=== PATIENT | male | born 1970 | race Caucasian/White ===

== ENCOUNTER 2020-09-09 08:46 | Emergency (ER) | payer MEDICAID, SELFPAY ==
[2020-09-09 08:48] VITALS: BP 159/67; PULSE 80; RESP 18; TEMP 36.3; O2SAT 96; BMI 28.1
--- NOTE | 2020-09-09 09:05 | ED_ITS ---
HPI - Abdominal Pain General: Chief Complaint: Abdominal Pain Stated Complaint: left abdomen pain, nausea Time Seen by Provider: 09/09/20 09:04 History of Present Illness: HPI narrative: Patient is a 49-year-old male who presents to the ED with left flank pain, nausea and vomiting. Patient has past medical history of CVA and is currently taking Eliquis. Patient says he woke up early this morning with intense pain on left flank. He currently rates the pain an 8 out of 10. He is had nausea and emesis along with the pain. He says that pain is moving down around his left flank and into his left lower pelvis. He states his urine is dark and very concentrated. Denies history of kidney stones. Denies fever, chest pain, shortness of breath, constipation, dysuria. Patient endorses diarrhea but he says that is a chronic issue. Associated Symptoms: Reports nausea and vomiting; Denies chills, constipation, diarrhea, dysuria, fever(s), hematochezia and hematuria Review of Systems Const: Denies: fever(s), chills or fatigue Eyes: Denies: change in vision or eye discomfort ENMT: Denies: throat pain, odynophagia, nasal discharge or nasal congestion Card: Denies: chest pain, palpitations, edema, swelling of feet/ankles, dyspnea on exertion or orthopnea Resp: Denies: dyspnea, productive cough or non-productive cough GI: Reports: abdominal pain (left lower pelvic pain), nausea and vomiting; Denies: diarrhea, constipation or hematochezia : Reports: flank pain; Denies: difficulty urinating, dysuria or hematuria Musc: Denies: neck pain, back pain or extremity swelling Skin/Breast: Denies: rash or new lesions Neuro: Denies: headache(s), numbness in extremities or weakness in extremities Physical Exam Const: COMMON NORMALS: patient oriented x3, healthy appearing and alert GENERAL APPEARANCE: cooperative; not comfortable (Patient appears uncomfortable and in pain and is constantly moving.) HENMT: COMMON NORMALS: normocephalic HEAD & SCALP: normocephalic MOUTH: Normal oral and palatal mucosa present THROAT: posterior oropharynx normal and uvula midline Neck/C-Spine: COMMON NORMALS: supple GENERAL: Yes normal visual inspection Resp: COMMON NORMALS: normal respiratory effort, No retractions, No use of accessory muscles and clear to auscultation bilaterally AUSCULTATION: clear to auscultation bilaterally Cardio: COMMON NORMALS: regular rate, regular rhythm, S1 normal heart sound pr esent, S2 normal heart sound present, No gallops present (Cardio), No clicks present (Cardio), No murmurs present (Cardio) and Peripheral pulses 2+ throughout RATE: regular rate RHYTHM: regular rhythm HEART SOUNDS: S1 normal heart sound present and S2 normal heart sound present PERIPHERAL PULSES: Peripheral pulses 2+ throughout GI: COMMON NORMALS: Normal to inspection, nondistended, normoactive bowel sounds present, Soft to palpation, non-tender and no masses PALPATION: Yes Soft to palpation : BLADDER/KIDNEY EXAM: Yes CVA tenderness on the left Back/Pelvis: GENERAL BACK: Yes CVA tenderness Extremity: COMMON NORMALS: normal to inspection and no pedal edema Neuro: COMMON NORMALS: patient oriented x3 SENSORIUM/ORIENTATION: Yes alert GAIT: Yes Normal gait present Skin: GENERAL SKIN EXAM: dry skin Course Vital Signs: Vital signs: Vital Signs Temperature 97.3 F L 09/09/20 08:48 Pulse Rate 80 09/09/20 08:48 Respiratory Rate 18 09/09/20 10:46 Blood Pressure 159/67 09/09/20 08:48 Pulse Oximetry 93 09/09/20 10:46 MDM - Abdominal Pain MDM Narrative: Medical decision making narrative: Patient is a 49-year-old male that comes to the ED with left flank pain. Patient has CVA tenderness on the left side. White blood cell count 12.6 and rest of CBC and CMP were unremarkable. Urine showed blood and a lot of RBCs. CT of the abdomen showed 3 mm obstructive stone at the left UVJ. Patient was given IV fluids, Zofran and and morphine while here in the ED and his symptoms greatly improved. Patient was discharged with a prescription for hydrocodone, Zofran and tamsulosin. He was told to strain his urine and catch stone. I placed an order with case management for patient to have referral to urologist Dr. Piedra. Patient informed that he will receive a call from case management next couple days to set up appointment with urologist. Return to ED precautions given. Patient understood and agreed with plan. Lab Data: Attestation: I reviewed the patient's lab results. Labs: Lab Results 1109/09/20 09/09/20 Range/Units 09:30 09:32 09:32 WBC 12.6 H (4.0-10.0) 10^3/ uL RBC 5.11 (4.1-5.3) 10^6/u L Hgb 16.8 H (11.7-16.6) g/dL Hct 49.1 (42.0-52.0) % MCV 96.1 H (80-94) fL MCH 32.9 (28.0-34.0) pg MCHC 34.2 (30.0-36.0) g/dL RDW 11.9 L (12.1-15.1) % Plt Count 313 (130-400) 10^3/c mm MPV 8.6 (7.4-10.4) fL Neut % (Auto) 68.7 % Lymph % (Auto) 22.5 % Bullock % (Auto) 7.3 % Eos % (Auto) 0.8 % Baso % (Auto) 0.3 % Neut # (Auto) 8.68 H (1.8-7.7) 10^3/u L Lymph # (Auto) 2.8 (0.8-4.8) 10^3/u L Bullock # (Auto) 0.9 (0.2-0.9) 10^3/u L Eos # (Auto) 0.1 (0.0-0.8) 10^3/u L Baso # (Auto) 0.0 (0.0-0.1) 10^3/u L Nucleated RBC % (a uto) 0 % Nucleated RBCs # 0.0 /100WBC Sodium 138 (136-145) mmol/L Potassium 4.1 (3.5-5.1) mmol/L Chloride 109 H (98-107) mmol/L Carbon Dioxide 20 L (22-29) mmol/L Anion Gap 13.1 (5-19) BUN 19 (6-20) mg/dL Creatinine 0.9 (0.7-1.2) mg/dL GFR Calculation 89.7 L (90-130) mL/min Glucose 122 H (65-115) mg/dL Calculated Osmolal ity 290 (285-295) mOsm/k g Calcium 9.1 (8.5-10.5) mg/dL Total Bilirubin 0.4 (0.15-1.2) mg/dL AST 34 (0-40) U/L ALT 61 H (0-41) U/L Alkaline Phosphata se 95 (40-130) IU/L Total Protein 7.6 (6.6-8.7) g/dL Albumin 4.5 (3.5-5.2) g/dL Globulin 3.1 (1.3-4.6) g/dL Lipase 30 (13-60) U/L Urine Color Yellow (Yellow) Urine Appearance Sl hazy (CLEAR) Urine pH 6.0 (5-7) Ur Specific Gravit y 1.020 (1.005-1.030) Urine Protein Neg (Negative) Urine Glucose (UA) Norm (Normal) Urine Ketones Negative (Negative) Urine Blood 3+ H (Negative) Urine Nitrate Negative (Negative) Urine Bilirubin Neg (Negative) Urine Urobilinogen 1 H (Negative) mg/dL Ur Leukocyte Kiya ase Negative (Negative) Urine RBC 40-50 H (0-2) /hpf Urine WBC None (0-5) /hpf Ur Squamous Epith Cells 0-4 H (0-5) /hpf Amorphous Sediment Not Reportable Urine Bacteria 1+ H (NONE) /hpf Urine Mucus Trace /hpf Imaging Data ^: CT Abd/Pel: Attestation: I personally reviewed and interpreted this imaging study as follows: Radiologist's impression: [place] [address] CT Scan Report Signed Patient: Marti Wolfe Unit #: [id number] : 1970 Age/Sex: 49 / M ADM Date: 09/09/20 Loc: ER Room/Bed: Attending Dr: Ordering Provider/Ordering MD: Simón Harris Date of Service: 09/09/20 Procedure(s): CT kidney stone 24274 Accession Number(s): [id number] Report Number: [id number] WS: [id number] CT ABDOMEN PELVIS TECHNIQUE: Noncontrast CT of the abdomen and pelvis with coronal and sagittal reformatted images. CLINICAL INFORMATION: left flank pain, cva tenderness COMPARISON: 016 DLP: 1276.[address] scans at [facility] use at least one of these dose optimization techniques: automated exposure control; mA and/or kV adjustment per patient size (includes targeted exams where dose is matched to clinical indication); or iterative reconstruction. FINDINGS: Distal obstructing left UVJ calculus measuring 3 mm. Mild left pelvocaliectasis and ureterectasis. Inflammatory stranding about the left ureter and left kidney. No hydronephrosis in right kidney. Right ureter is decompressed. Tiny left calyceal tip calculi. Noncontrast liver is normal. Normal noncontrast gallbladder. Normal GE junction. Noncontrast spleen is normal. Mild pancreatic atrophy. Bibasilar atelectasis. Adrenal glands are normal. Normal caliber abdominal aorta. Normal appendix. Mild disc bulging L4-L5 and L5-S1. CT/CT kidney stone [id number] IMPRESSION: 1. 3 mm obstructing left UVJ calculus with mild left ureterectasis and pelvocaliectasis. Inflammatory stranding about the left kidney and proximal ureter. 2. No hydronephrosis in right kidney. 3. No free fluid in the abdomen or pelvis. 4. No other significant changes from previous Notified JANICE El at 09/09/2020 10:23 AM. Dictated By: Ronan Lyn MD Signed By: Ronan Lyn MD Signed Date/Time: 09/09/20 1024 DD/ 1007 Discharge Plan Discharge Patient Disposition: Home Clinical Impression: Kidney stone on left side Condition: Stable Prescriptions: New tamsulosin 0.4 mg capsule 0.4 mg PO DAILY Qty: 20 RF: 0 Zofran 4 mg tablet 4 mg PO Q8H Qty: 15 RF: 0 Discharge Orders: Discharge Order (Routine); Ordered 09/09/20 Ordered By: Simón Harris Referrals: Junie Muller DO [Primary Care Provider] - Discharge Diet: Advance as tolerated Discharge Activity: Resume usual activity Patient Instructions: Kidney Stones (ED), How to Strain Your Urine (ED) Activity Restrictions/Additional Instructions: Follow-up with medical provider as directed. Case management should be contacting you in the next several days to set up an appointment with Dr. Piedra the urologist. Strain urine to catch stone and drink lots of fluid to stay hydrated and help pass stone. Take medications as prescribed. You can take ibuprofen or Aleve for any pain or fevers. Return to the ER or your medical provider if condition worsens. Please read and understand discharge instructions. If any questions, please ask. Stand Alone Forms: Work/School Release Discharge Date/Time: 09/09/20 11:08 Coding Level of Care Code ED Sign Writer Hand for Angela Fwd Exam Comprehensive
--- NOTE | 2020-09-09 09:18 | CT_ITS ---
WS: [id number] CT ABDOMEN PELVIS TECHNIQUE: Noncontrast CT of the abdomen and pelvis with coronal and sagittal reformatted images. CLINICAL INFORMATION: left flank pain, cva tenderness COMPARISON: 6 ,016 DLP: 1276.[address] scans at [facility] use at least one of these dose optimization techniques: automat ed exposure control; mA and/or kV adjustment per patient size (includes targeted exams where dose is matched to clinical indication); or iterative reconstruction. FINDINGS: Distal obstructing left UVJ calculus measuring 3 mm. Mild left pelvocaliectasis and ureterectasis. In flammatory stranding about the left ureter and left kidney. No hydronephrosis in right kidney. Right ureter is decompressed. Tiny left calyceal tip calculi. Noncontrast liver is normal. Normal noncontrast gallbladder. Normal GE junction. Noncontrast spleen i s normal. Mild pancreatic atrophy. Bibasilar atelectasis. Adrenal glands are normal. Normal caliber abdominal aorta. Normal appendix. Mild disc bulging L4-L5 a nd L5-S1. CT/CT kidney stone [id number] IMPRESSION: 1. 3 mm obstructing left UVJ calculus with mild left ureterectasis and pelvoca liectasis. Inflammatory stranding about the left kidney and proximal ureter. 2. No hydronephrosis in right kidney. 3. No free fluid in the abdomen or pelvis. 4. No other significant changes from previous Notified JANICE El at 09/09/2020 10:23 AM.
[2020-09-09] MEDS: ondansetron 2 mg/ML SDV 2 mL 4 MG IVP (09:22)
[2020-09-09] MEDS: sodium chloride 0.9% 1,000 ML 999 ML IV (09:22)
[2020-09-09 09:28] VITALS: RESP 18
[2020-09-09] MEDS: morphine 4 mg/mL SDV 1 mL IVP ×2 (09:28→10:46)
[2020-09-09 09:44] LABS: Basophils % 0.3 %; Eosinophils # 0.1 10^3/uL (0.0-0.8); Eosinophils % 0.8 %; Hematocrit 49.1 % (42.0-52.0); Hemoglobin 16.8 g/dL (11.7-16.6); Lymphocytes # 2.8 10^3/uL (0.8-4.8); Lymphocytes % 22.5 %; Mean Corpuscular HGB Conc 34.2 g/dL (30.0-36.0); Mean Corpuscular Hemoglobin 32.9 pg (28.0-34.0); Mean Corpuscular Volume 96.1 fL (80-94); Mean Platelet Volume 8.6 fL (7.4-10.4); Monocytes # 0.9 10^3/uL (0.2-0.9); Monocytes % 7.3 %; Neutrophils # 8.68 10^3/uL (1.8-7.7); Neutrophils % 68.7 %; Nucleated Red Blood Cells % 0 %; Platelet Count 313 10^3/cmm (130-400); Red Blood Count 5.11 10^6/uL (4.1-5.3); Red Cell Distribution Width 11.9 % (12.1-15.1); White Blood Count 12.6 10^3/uL (4.0-10.0)
[2020-09-09 09:52] LABS: Bilirubin Urine Neg (Negative); Blood Urine 3+ (Negative); Glucose Urine UA Norm (Normal); Ketones Urine Negative (Negative); Leukocyte Esterase Urine Negative (Negative); Nitrate Urine Negative (Negative); Protein Urine Neg (Negative); Urine Appearance SL Hazy (CLEAR); Urine Color Yellow (Yellow); Urobilinogen Urine 1 mg/dL (Negative)
[2020-09-09 09:59] LABS: Alanine Aminotransferase 61 U/L (0-41); Albumin Level 4.5 g/dL (3.5-5.2); Alkaline Phosphatase 95 IU/L (40-130); Anion Gap 13.1 (5-19); Aspartate Amino Transferase 34 U/L (0-40); Blood Urea Nitrogen 19 mg/dL (6-20); Calcium 9.1 mg/dL (8.5-10.5); Carbon Dioxide 20 mmol/L (22-29); Chloride 109 mmol/L (98-107); Globulin 3.1 g/dL (1.3-4.6); Glomerular Filtration Rate 89.7 mL/min (90-130); Glucose 122 mg/dL (65-115); Lipase 30 U/L (13-60); Osmolality Calculated 290 mOsm/kg (285-295); Potassium 4.1 mmol/L (3.5-5.1); Sodium 138 mmol/L (136-145); Total Bilirubin 0.4 mg/dL (0.15-1.2); Total Protein 7.6 g/dL (6.6-8.7)
[2020-09-09 10:16] LABS: Add Urine Culture? Yes; Bacteria Urine 1+ /hpf; Mucus Urine TRACE /hpf; RBC Urine 40-50 /hpf (0-2); Squamous Epithelial Cell Urine 0-4 /hpf (0-5)
[2020-09-09 10:46] VITALS: RESP 18; O2SAT 93
[2020-09-09] MEDS: tamsulosin 0.4 mg Capsule PO (10:48)
[2020-09-09 11:09] VITALS: PULSE 72; RESP 20; O2SAT 93
--- NOTE | 2020-09-09 11:23 | DCPLANNER ---
employment specialist/program manager was asked to schedule a follow up appointment for patient with Dr. Piedra. employment specialist/program manager called the office of Dr. Piedra, spoke with Nirali, gave clinic patients information. employment specialist/program manager was told that patients information would be printed and reviewed. Clinic will call patient with appointment information.
--- NOTE | 2020-09-10 10:21 | DCPLANNER ---
Patient has a follow up appointment scheduled for Monday, September 11, 2020 at 11:[address] Piedra. Clinic will call patient with appointment information.
--- NOTE | 2020-10-07 13:00 | DCPLANNER ---
Patient had a follow up appointment scheduled for 09.11.[address] Piedra - patient did attend appointment.
== END 2020-09-09 11:08 | disposition home or self-care (01) ==
PROVIDERS: Emergency Provider Physician Assistant; PCP Internal Medicine
DX: N20.0 Calculus of kidney (principal)
CPT/HCPCS: 12345; 74176; 80053; 81001; 83690; 85025; 87040; 87086; 96361; 96374; 96375; 96376; 99283; J2270; J2405; J7030

== ENCOUNTER 2020-09-11 09:59 | Outpatient (CLI) | payer MEDICAID, SELFPAY ==
--- NOTE | 2020-09-11 09:45 | XR_ITS ---
WS: [id number] KUB, 09/11/2020 Clinical Data: KIDNEY STONE Comparison: CT abdomen and pelvis, 09/09/2020. Findings: No abnormal intraabdominal masses or calcifications are seen. There is no dilatated small bowel or ev idence of obstruction. The left UVJ calculus is obscured by fecal material. XR/XR KUB 24919 Impression: Negative KUB.
== END 2020-09-11 10:00 | disposition home or self-care (01) ==
LOC: RAD 10:02
PROVIDERS: PCP Internal Medicine; Visit Provider Nurse Practitioner Family
DX: N20.0 Calculus of kidney (principal)
CPT/HCPCS: 74018

== ENCOUNTER 2020-09-16 12:06 | Outpatient (CLI) | payer MEDICAID, SELFPAY ==
--- NOTE | 2020-09-16 12:30 | XR_ITS ---
WS: [id number] KUB, 09/16/2020 Clinical Data: LEFT URETERAL STONE Comparison: KUB, 09/11/2020., CT abdomen and pelvis, 09/09/2020. Findings: No abnormal intraabdominal masses or calcifications are seen. There is no dilatated small bowel or ev idence of obstruction. The left ureterovesical junction stone seen on a CT scan of 09/09/2020 is not visualized on the curre nt exam.. XR/XR KUB 49278 Impression: Negative KUB.
== END 2020-09-16 12:07 | disposition home or self-care (01) ==
LOC: RAD 12:12
PROVIDERS: PCP Internal Medicine; Visit Provider Urology
DX: N20.1 Calculus of ureter (principal)
CPT/HCPCS: 74018; 81003

== ENCOUNTER 2020-09-30 09:49 | Outpatient (CLI) | payer MEDICAID, SELFPAY ==
--- NOTE | 2020-09-30 10:15 | XR_ITS ---
WS: [id number] XR KUB 11045 REASON FOR EXAM: URETERAL STONE FINDINGS: No urinary tract calculi are identified. The left ureteral vesicle junction calculus seen on CT scan of 09/09/2020 was not visualized on the previous abdomen film nor on the current study. No other significant abnormality is identified. XR/XR KUB 51811 IMPRESSION: Unable to identify left UVJ calculus seen on previous CT scan.
== END 2020-09-30 09:50 | disposition home or self-care (01) ==
LOC: RAD 09:51
PROVIDERS: PCP Internal Medicine; Visit Provider Urology
DX: N20.1 Calculus of ureter (principal)
CPT/HCPCS: 74018

== ENCOUNTER → 2020-10-17 11:54 | Outpatient (BNVA) | payer MEDICAID, SELFPAY | PROVIDERS: PCP Internal Medicine; Visit Provider Surgery | DX: Z20.828 Contact with and (suspected) exposure to other viral communicable diseases (principal); Z01.812 Encounter for preprocedural laboratory examination | CPT/HCPCS: 87635 ==

== ENCOUNTER 2020-10-19 18:56 | Emergency (ER) | payer MEDICAID, SELFPAY ==
[2020-10-19 18:58] VITALS: BP 112/79; PULSE 81; RESP 18; TEMP 37; O2SAT 96; BMI 27.5
--- NOTE | 2020-10-19 19:20 | W.ED.GIBLEED ---
Documented by User: Lui Vitale DO 10/20/20 08:06 HPI - GI Bleed General: Chief complaint: GI Bleed Stated complaint: bloody stool Time Seen by Provider: 10/19/20 19:06 History of Present Illness: HPI Narrative: 50-year-old male presents emergency room complaining of melenic stools. He is scheduled for colonoscopy and EGD he had canceled because his Covid screening was not completed in a timely fashion. He had started taking his prep however and got some black tarry stools he denies any recent use of Pepto-Bismol. He has not had any bright red blood per rectum no nausea or vomiting no hematemesis. He was previously on Eliquis but stopped that because of concern for GI bleed. MD complaint: melena Onset (ago): hour(s) Severity: moderate Relieving factors: none Exacerbating factors: none Context: history of GI bleed Associated symptoms: Denies abdominal pain, chills, easy bruising, epistaxis, fever(s), headache(s), malaise, nausea, other bleeding, poor appetite, rash, syncope, vomiting or weakness Treatments Prior to Arrival: none Review of Systems Const: Denies: fever(s), chills or malaise ENMT: Denies: epistaxis Card: Denies: chest pain, edema, dyspnea on exertion or orthopnea Resp: Denies: dyspnea, productive cough or non-productive cough GI: Denies: abdominal pain, nausea or vomiting : Denies: flank pain, dysuria, urinary frequency or urinary urgency Skin/Breast: Denies: rash Neuro: Denies: headache(s) Nick/Lymph: Denies: easy bruising PFSH ED PFSH: Medical History Anxiety and depression GERD (gastroesophageal reflux disease) Hx of basal cell carcinoma Left ureteral stone Renal calculi Stroke Family History Mother Cancer SKIN CANCER Other Diabetes Social History Smoking and tobacco status: current every day smoker Alcohol intake: current Alcohol intake frequency: holidays/special occasions only Adopted: No Caregiver/support person: No Lives independently: No Household members: spouse Marital status: Current occupational status: disabled Physical Exam Const: COMMON NORMALS: no acute distress GENERAL APPEARANCE: cooperative and comfortable ORIENTATION/CONSCIOUSNESS: Yes awake, Yes oriented to person, Yes oriented to place and Yes oriented to time Neck/C-Spine: COMMON NORMALS: no JVD Resp: COMMON NORMALS: normal respiratory effort, No retractions, No use of accessory muscles and clear to auscultation bilaterally AUSCULTATION: clear to auscultation bilaterally Cardio: COMMON NORMALS: no JVD, regular rate, regular rhythm and No murmurs present (Cardio) RATE: regular rate RHYTHM: regular rhythm GI: COMMON NORMALS: Soft to palpation and No hepatosplenomegaly present AUSCULTATION: Yes normoactive bowel sounds PALPATION: Yes Soft to palpation, No Tenderness to palpation present (GI), No Guarding due to palpation present (GI) and Yes No hepatosplenomegaly present RECTAL EXAM: Yes normal sphincter tone, Yes prostate normal and Yes heme negative stool Extremity: COMMON NORMALS: normal to inspection, capillary refill normal, no clubbing, cyanosis or edema, no calf tenderness and no pedal edema Neuro: SENSORIUM/ORIENTATION: Yes oriented to person, Yes oriented to place and Yes oriented to time Skin: COMMON NORMALS: no rashes or lesions noted GENERAL SKIN EXAM: no rashes or lesions noted Course Vital Signs: Vital signs: Vital Signs Temperature 98.6 F 10/19/20 18:58 Pulse Rate 78 10/19/20 20:43 Respiratory Rate 16 10/19/20 20:43 Blood Pressure 112/79 10/19/20 18:58 Pulse Oximetry 96 10/19/20 20:43 MDM - GI Bleed MDM Narrative: Medical decision making narrative: Care turned over to Dr. Jett at change of shift please see his notes for final diagnosis and disposition Lab Data: Labs: Lab Results 10/19/20 10/19/20 10/19/20 Range/Units 19:40 19:40 19:40 WBC 7.2 (4.0-10.0) 10^3/ uL RBC 5.13 (4.1-5.3) 10^6/u L Hgb 16.9 H (11.7-16.6) g/dL Hct 50.0 (42.0-52.0) % MCV 97.5 H (80-94) fL MCH 32.9 (28.0-34.0) pg MCHC 33.8 (30.0-36.0) g/dL RDW 12.0 L (12.1-15.1) % Plt Count 269 (130-400) 10^3/c mm MPV 8.3 (7.4-10.4) fL Neut % (Auto) 49.2 % Lymph % (Auto) 40.2 % [place] % (Auto) 8.5 % Eos % (Auto) 1.4 % Baso % (Auto) 0.4 % Neut # (Auto) 3.55 (1.8-7.7) 10^3/u L Lymph # (Auto) 2.9 (0.8-4.8) 10^3/u L [place] # (Auto) 0.6 (0.2-0.9) 10^3/u L Eos # (Auto) 0.1 (0.0-0.8) 10^3/u L Baso # (Auto) 0.0 (0.0-0.1) 10^3/u L Nucleated RBC % (a uto) 0 % Nucleated RBCs # 0.0 /100WBC PT 13.70 (12.1-14.9) SECO NDS INR 1.02 (0.8-1.2) Sodium 139 (136-145) mmol/L Potassium 3.9 (3.5-5.1) mmol/L Chloride 109 H (98-107) mmol/L Carbon Dioxide 23 (22-29) mmol/L Anion Gap 10.9 (5-19) BUN 15 (6-20) mg/dL Creatinine 0.7 (0.7-1.2) mg/dL GFR Calculation 119.4 (90-130) mL/min Glucose 98 (65-115) mg/dL Calculated Osmolal ity 289 (285-295) mOsm/k g Calcium 9.3 (8.5-10.5) mg/dL Total Bilirubin 0.5 (0.15-1.2) mg/dL AST 28 (0-40) U/L ALT 45 H (0-41) U/L Alkaline Phosphata se 88 (40-130) IU/L Total Protein 7.4 (6.6-8.7) g/dL Albumin 4.4 (3.5-5.2) g/dL Globulin 3.0 (1.3-4.6) g/dL Discharge Plan Discharge Condition: Stable Prescriptions: No Action Eliquis 5 mg tablet 5 mg PO BID@599,1999 RF: 0 topiramate 50 mg tablet 50 mg PO DAILY@1999 RF: 0 bupropion HCl 75 mg tablet 75 mg PO DAILY@1999 RF: 0 atorvastatin 40 mg tablet 40 mg PO DAILY@1999 RF: 0 acetaminophen [Tylenol Extra Strength] 500 mg tablet 500 mg PO Q6H PRN (Reason: Pain) RF: 0 cyclobenzaprine 10 mg tablet 10 mg PO TID PRN (Reason: Pain) RF: 0 pantoprazole 40 mg tablet,delayed release (DR/EC) 40 mg PO DAILY@1999 RF: 0 Chantix 1 mg Tablet 1 mg PO BID@ RF: 0 Discharge Orders: Discharge ED (Routine); Ordered 10/19/20 Ordered By: Rivka Rivers Referrals: Junie Muller DO [Primary Care Provider] - 1-3 days Discharge Diet: Advance as tolerated Discharge Activity: Increase activity as tolerated Patient Instructions: Acute Diarrhea (ED) Activity Restrictions/Additional Instructions: Please return to the ER immediately for any of the signs or symptoms listed on your discharge instruction sheets, worsening/changing of your symptoms, you are not getting better as quickly as expected, or for ANY other cause or concerns. Sign Out Sign Out Data: Patient Sign Out occurred on 10/19/20 at 20:16. Patient's care was discussed, and care was transferred from to Rivka Rivers. Coding Level of Care Code ED Film Drying Machine Operator for Chg Fwd Exam Detailed Documented by User: Rivka Rivers 10/19/20 23:40 HPI - GI Bleed General: Chief complaint: GI Bleed Stated complaint: bloody stool Time Seen by Provider: 10/19/20 19:06 PFS ED PFSH: Medical History Anxiety and depression GERD (gastroesophageal reflux disease) Hx of basal cell carcinoma Left ureteral stone Renal calculi Stroke Family History Mother Cancer SKIN CANCER Other Diabetes Social History Smoking and tobacco status: current every day smoker Alcohol intake: current Alcohol intake frequency: holidays/special occasions only Adopted: No Caregiver/support person: No Lives independently: No Household members: spouse Marital status: Current occupational status: disabled Course Vital Signs: Vital signs: Vital Signs Temperature 98.6 F 10/19/20 18:58 Pulse Rate 78 10/19/20 20:43 Respiratory Rate 16 10/19/20 20:43 Blood Pressure 112/79 10/19/20 18:58 Pulse Oximetry 96 10/19/20 20:43 MDM - GI Bleed MDM Narrative: Medical decision making narrative: 2028 -patient has no vomiting here and no blood in his stool on examination. His labs are unremarkable. Once in his stool is likely something that was undigested and then was just pushed through with the oral prep. He is not dizzy, lightheaded or complain of orthostasis with walking or ambulation. Patient is very happy to hear his lab work and work-up was unremarkable. He is somewhat disappointed he cannot finish his colonoscopy prep as he does not want to have to do this again. Ultimately the patient feels better and is ready to go home. This time he appears stable for discharge. Lab Data: Labs: Lab Results 10/19/20 10/19/20 10/19/20 Range/Units 19:40 19:40 19:40 WBC 7.2 (4.0-10.0) 10^3/ uL RBC 5.13 (4.1-5.3) 10^6/u L Hgb 16.9 H (11.7-16.6) g/dL Hct 50.0 (42.0-52.0) % MCV 97.5 H (80-94) fL MCH 32.9 (28.0-34.0) pg MCHC 33.8 (30.0-36.0) g/dL RDW 12.0 L (12.1-15.1) % Plt Count 269 (130-400) 10^3/c mm MPV 8.3 (7.4-10.4) fL Neut % (Auto) 49.2 % Lymph % (Auto) 40.2 % [place] % (Auto) 8.5 % Eos % (Auto) 1.4 % Baso % (Auto) 0.4 % Neut # (Auto) 3.55 (1.8-7.7) 10^3/u L Lymph # (Auto) 2.9 (0.8-4.8) 10^3/u L [place] # (Auto) 0.6 (0.2-0.9) 10^3/u L Eos # (Auto) 0.1 (0.0-0.8) 10^3/u L Baso # (Auto) 0.0 (0.0-0.1) 10^3/u L Nucleated RBC % (a uto) 0 % Nucleated RBCs # 0.0 /100WBC PT 13.70 (12.1-14.9) SECO NDS INR 1.02 (0.8-1.2) Sodium 139 (136-145) mmol/L Potassium 3.9 (3.5-5.1) mmol/L Chloride 109 H (98-107) mmol/L Carbon Dioxide 23 (22-29) mmol/L Anion Gap 10.9 (5-19) BUN 15 (6-20) mg/dL Creatinine 0.7 (0.7-1.2) mg/dL GFR Calculation 119.4 (90-130) mL/min Glucose 98 (65-115) mg/dL Calculated Osmolal ity 289 (285-295) mOsm/k g Calcium 9.3 (8.5-10.5) mg/dL Total Bilirubin 0.5 (0.15-1.2) mg/dL AST 28 (0-40) U/L ALT 45 H (0-41) U/L Alkaline Phosphata se 88 (40-130) IU/L Total Protein 7.4 (6.6-8.7) g/dL Albumin 4.4 (3.5-5.2) g/dL Globulin 3.0 (1.3-4.6) g/dL Discharge Plan Discharge Condition: Stable Prescriptions: No Action Eliquis 5 mg tablet 5 mg PO BID@599,1999 RF: 0 topiramate 50 mg tablet 50 mg PO DAILY@1999 RF: 0 bupropion HCl 75 mg tablet 75 mg PO DAILY@1999 RF: 0 atorvastatin 40 mg tablet 40 mg PO DAILY@1999 RF: 0 acetaminophen [Tylenol Extra Strength] 500 mg tablet 500 mg PO Q6H PRN (Reason: Pain) RF: 0 cyclobenzaprine 10 mg tablet 10 mg PO TID PRN (Reason: Pain) RF: 0 pantoprazole 40 mg tablet,delayed release (DR/EC) 40 mg PO DAILY@1999 RF: 0 Chantix 1 mg Tablet 1 mg PO BID@ RF: 0 Discharge Orders: Discharge ED (Routine); Ordered 10/19/20 Ordered By: Rivka Rivers Referrals: Junie Muller DO [Primary Care Provider] - 1-3 days Discharge Diet: Advance as tolerated Discharge Activity: Increase activity as tolerated Patient Instructions: Acute Diarrhea (ED) Activity Restrictions/Additional Instructions: Please return to the ER immediately for any of the signs or symptoms listed on your discharge instruction sheets, worsening/changing of your symptoms, you are not getting better as quickly as expected, or for ANY other cause or concerns. Sign Out Sign Out Data: Patient Sign Out occurred on 10/19/20 at 20:16. Patient's care was discussed, and care was transferred from to Rivka Rivers. Coding Level of Care Code ED Film Drying Machine Operator for [place] Fwd Exam Detailed
[2020-10-19 19:45] LABS: Basophils % 0.4 %; Eosinophils # 0.1 10^3/uL (0.0-0.8); Eosinophils % 1.4 %; Hemoglobin 16.9 g/dL (11.7-16.6); Lymphocytes # 2.9 10^3/uL (0.8-4.8); Lymphocytes % 40.2 %; Mean Corpuscular HGB Conc 33.8 g/dL (30.0-36.0); Mean Corpuscular Hemoglobin 32.9 pg (28.0-34.0); Mean Corpuscular Volume 97.5 fL (80-94); Mean Platelet Volume 8.3 fL (7.4-10.4); Monocytes # 0.6 10^3/uL (0.2-0.9); Monocytes % 8.5 %; Neutrophils # 3.55 10^3/uL (1.8-7.7); Neutrophils % 49.2 %; Nucleated Red Blood Cells % 0 %; Platelet Count 269 10^3/cmm (130-400); Red Blood Count 5.13 10^6/uL (4.1-5.3); White Blood Count 7.2 10^3/uL (4.0-10.0)
[2020-10-19 19:48] VITALS: PULSE 72; RESP 18; O2SAT 96
[2020-10-19 20:03] LABS: INR 1.02 (0.8-1.2)
[2020-10-19 20:11] LABS: Alanine Aminotransferase 45 U/L (0-41); Albumin Level 4.4 g/dL (3.5-5.2); Alkaline Phosphatase 88 IU/L (40-130); Aspartate Amino Transferase 28 U/L (0-40); Blood Urea Nitrogen 15 mg/dL (6-20); Calcium 9.3 mg/dL (8.5-10.5); Carbon Dioxide 23 mmol/L (22-29); Chloride 109 mmol/L (98-107); Glomerular Filtration Rate 119.4 mL/min (90-130); Glucose 98 mg/dL (65-115); Osmolality Calculated 289 mOsm/kg (285-295); Sodium 139 mmol/L (136-145); Total Bilirubin 0.5 mg/dL (0.15-1.2); Total Protein 7.4 g/dL (6.6-8.7)
[2020-10-19 20:19] LABS: Anion Gap 10.9 (5-19)
[2020-10-19 20:20] LABS: Potassium 3.9 mmol/L (3.5-5.1)
[2020-10-19 20:43] VITALS: PULSE 78; RESP 16; O2SAT 96
== END 2020-10-19 20:47 ==
PROVIDERS: Emergency Medicine; Emergency Provider Emergency Medicine; PCP Internal Medicine
DX: K92.1 Melena (principal); Z79.01 Long term (current) use of anticoagulants; Z86.73 Personal history of transient ischemic attack (TIA), and cerebral infarction without residual deficits; F17.210 Nicotine dependence, cigarettes, uncomplicated
CPT/HCPCS: 12345; 80053; 85025; 85610; 99283

== ENCOUNTER → 2020-10-23 09:23 | Outpatient (BNVA) | payer MEDICAID, SELFPAY | PROVIDERS: PCP Internal Medicine; Visit Provider Nurse Practitioner | DX: I69.319 Unspecified symptoms and signs involving cognitive functions following cerebral infarction (principal); F31.60 Bipolar disorder, current episode mixed, unspecified; R51.9 Headache, unspecified; F17.210 Nicotine dependence, cigarettes, uncomplicated | CPT/HCPCS: 99204 ==

== ENCOUNTER → 2020-11-17 10:24 | Outpatient (BNVA) | payer MEDICAID, SELFPAY | PROVIDERS: PCP Internal Medicine; Visit Provider Surgery | DX: Z11.59 Encounter for screening for other viral diseases (principal); K21.9 Gastro-esophageal reflux disease without esophagitis | CPT/HCPCS: 87635 ==

== ENCOUNTER 2020-11-24 08:16 | Day surgery (SDC) | payer MEDICAID, SELFPAY ==
[2020-11-20 13:54] VITALS: BMI 28.1
[2020-11-24 08:24] VITALS: BP 128/91; PULSE 78; RESP 18; TEMP 36.1; O2SAT 98
[2020-11-24] MEDS: sodium chloride 0.9% 1,000 ML 30 ML IV (08:36)
--- NOTE | 2020-11-24 10:39 | ANES.PREANE2 ---
Pre-Anesthetic Assessment Pre-Anesthetic Assessment: Height/Weight: Height 1.78 m Weight 88.904 kg Temp Pulse Resp BP Pulse Ox 97 F L 78 18 128/91 98 11/24/20 08:24 11/24/20 08:24 11/24/20 08:24 11/24/20 08:24 11/24/20 08:24 Preop Diagnosis: screening colonoscopy Proposed Procedure: Operation Date: 11/24/20 09:30 Proposed Procedures p EGD/Colon 13078 K21.9(Not Applicable) - Germán Capone MD s Colonoscopy 34282 Z12.11(Not Applicable) - Germán Capone MD Familial anesthetic complications: None Was Beta Anita taken within 24 hours: N/A Last intake: Intake Last Liquid Date 11/23/20 Last Liquid Time 22:00 Last Solid Date 11/22/20 Last Solid Time 20:00 Social: Social History: Tobacco and No alcohol Exam: Pre-Anes Outpt Exam: alert, oriented x 3, clear to auscultation bilaterally and regular rate & rhythm Airway: Cervical ROM: WNL MP: 3 Dentition: Chipped Additional comments: I have bunch of broken teeth all over GI: GI: GERD Neuropsych: Neuropsych: CVA (X2 on eliquis - holding since ay) Anesthetic Plan: ASA status: 2 Anesthesia: MAC Risk of > 500 ml blood loss (7ml/kg in children): No Meds/Allergies Current Medications: Current Medications Generic Name Dose Route Start Last Admin Trade Name Freq PRN Reason Stop Dose Admin Sodium Chloride 1,000 mls @ 30 ml s/hr 11/24/20 08:30 11/24/20 08:36 Sodium Chloride 0.9% IV 11/25/20 08:29 30 mls/hr .Q24H MILADY Administration PFSH Anesthesia PFSH: Medical History Anxiety and depression GERD (gastroesophageal reflux disease) Hx of basal cell carcinoma Left ureteral stone Renal calculi Stroke Family History Mother Cancer SKIN CANCER Other Diabetes Social History (Updated 10/23/20 @ 09:38 by Tia Valerio LPN) Smoking and tobacco status: current every day smoker cigarettes [ Other cigarette details: Using Chantix ] Marital status: Data Anesthesia Cardiac Studies: No Data to Display
--- NOTE | 2020-11-24 11:15 | W.PM.OPSFHP ---
Same Day Surgery H&P Indication for Procedure/HPI DATE OF PROCEDURE: November 24, 2020 CHIEF COMPLAINT/INDICATIONFOR SURGICAL PROCEDURE: colonoscopy PREOP DIAGNOSIS: screening colonoscopy PLANNED PROCEDRUE: Operation Date: 11/24/20 09:30 Proposed Procedures p EGD/Colon 23642 K21.9(Not Applicable) - Germán Capone MD s Colonoscopy 45502 Z12.11(Not Applicable) - Germán Capone MD Medications/Allergies* Home Medications Medication Instructions Recorded Confirmed Type acetaminophen 500 mg tablet 500 mg PO Q6H PRN 09/11/20 11/24/20 History apixaban 5 mg tablet 5 mg PO BID@06,199909/11/20 11/24/20 History atorvastatin 40 mg tablet 40 mg PO DAILY@199909/11/20 11/24/20 History cyclobenzaprine 10 mg tablet 10 mg PO TID PRN 09/11/20 11/24/20 History pantoprazole 40 mg PO DAILY@199910/16/20 11/24/20 History varenicline [Chantix] 1 mg PO BID@10/16/20 11/24/20 History bupropion HCl 150 mg PO DAILY 11/20/20 11/24/20 History Allergies/Adverse Reactions Allergy/AdvReac Type Severity Reaction Status Date / Time No Known Allergies Allergy Verified 11/20/20 13:53 Current Medications: Generic Name Dose Route Start Last Admin Trade Name Freq PRN Reason Stop Dose Admin Sodium Chloride 1,000 mls @ 30 mls/hr 11/24/20 08:30 11/24/20 08:36 Sodium Chloride 0.9% IV 11/25/20 08:29 30 mls/hr .Q24H MILADY Administration Pertinent History/Comorbid Conditions* Medical History (Updated 09/19/20 @ 10:10 by Germán Capone MD) Anxiety and depression GERD (gastroesophageal reflux disease) Hx of basal cell carcinoma Left ureteral stone Renal calculi Stroke Family History (Updated 09/11/20 @ 11:30 by NORRIS Caal) Diabetes Cancer Mother SKIN CANCER Social History Smoking and tobacco status: current every day smoker cigarettes [ Other cigarette details: Using Chantix ] Marital status: Pertinent Exam Findings alert, oriented x 3 and regular rate & rhythm Recommendations Surgery/Procedure today Coding Level of Care Code Acute Manager Field Investigations for Chg Bryon
[2020-11-24 12:04] VITALS: BP 125/99; PULSE 99; RESP 16; TEMP 36.2; O2SAT 95
[2020-11-24 12:19] VITALS: BP 136/107; PULSE 84; RESP 16; O2SAT 94
--- NOTE | 2020-11-24 14:11 | ANE.PACU2 ---
Inpatient post-anesthesia follow up: Airway intact: Yes Vital signs: Temperature 97.2 F Pulse Rate 84 Respiratory Rate 16 Blood Pressure 136/107 Pulse Oximetry 94 Oxygen Delivery Me thod Room Air Oxygen Flow Rate Fraction of Inspir ed Oxygen Hydration adequate: Yes Nausea and vomiting: No Pain level: 1 Mental status: Baseline
== END 2020-11-24 12:33 | disposition home or self-care (01) ==
PROVIDERS: PCP Internal Medicine; Visit Provider Surgery
PROC: 0DJ08ZZ Inspection of Upper Intestinal Tract, Via Natural or Artificial Opening Endoscopic (ICD-10-PCS; CPT 43235; principal; 2020-11-24 09:30)
PROC: 0DJD8ZZ Inspection of Lower Intestinal Tract, Via Natural or Artificial Opening Endoscopic (ICD-10-PCS; CPT 45378; 2020-11-24 09:30)
DX: Z12.11 Encounter for screening for malignant neoplasm of colon (principal); K21.9 Gastro-esophageal reflux disease without esophagitis; F41.9 Anxiety disorder, unspecified; F32.9 Major depressive disorder, single episode, unspecified; Z85.9 Personal history of malignant neoplasm, unspecified; F17.210 Nicotine dependence, cigarettes, uncomplicated; K29.70 Gastritis, unspecified, without bleeding; D12.2 Benign neoplasm of ascending colon; K64.8 Other hemorrhoids; Z79.01 Long term (current) use of anticoagulants; Z86.73 Personal history of transient ischemic attack (TIA), and cerebral infarction without residual deficits
CPT/HCPCS: 12345; 43235; 45380; 88305; J2704; J7030

== ENCOUNTER 2021-10-04 08:49 | Outpatient (CLI) | payer MEDICARE, MEDICAID, SELFPAY ==
--- NOTE | 2021-10-04 08:54 | XRR_ITS ---
PROCEDURE INFORMATION: Exam: XR Abdomen Exam date and time: 10/04/2021 8:54 AM Age: 51 years old Clinical indication: Condition or disease; Kidney or ureter condition; Calculus (stone) in ureter; Additional info: Left ureteral stone TECHNIQUE: Imaging protocol: XR of the abdomen. Views: Frontal supine view of the abdomen. 1 View. COMPARISON: CR XR KUB [id number] 09/30/2020 9:56 AM FINDINGS: Gastrointestinal tract: No dilated gas-filled loops of bowel. Organs: No radiopaque renal or ureteral calculi. Bones/joints: No acute osseous abnormality. XR/XR KUB [id number] IMPRESSION: No radiopaque calculi. Radiation Dose CTDIVOL = (mGy): DLP = (mGy-cm)
== END 2021-10-04 08:50 | disposition home or self-care (01) ==
LOC: RAD 08:52
PROVIDERS: PCP Emergency Medicine; Visit Provider Urology
DX: N20.1 Calculus of ureter (principal)
CPT/HCPCS: 74018; 81003

== ENCOUNTER 2022-07-01 06:00 | Outpatient (RCR) | payer MEDICARE, MEDICAID, SELFPAY | END 2022-07-06 23:59 | disposition home or self-care (01) | LOC: SPT 06:00 | PROVIDERS: Visit Provider Pediatrics | DX: M75.101 Unspecified rotator cuff tear or rupture of right shoulder, not specified as traumatic (principal) | CPT/HCPCS: 97110; 97161 ==

== ENCOUNTER 2022-07-07 06:00 | Outpatient (RCR) | payer MEDICARE, MEDICAID, SELFPAY | END 2022-07-26 23:59 | disposition home or self-care (01) | LOC: SPT 06:00 | PROVIDERS: Visit Provider Pediatrics | DX: M75.101 Unspecified rotator cuff tear or rupture of right shoulder, not specified as traumatic (principal) | CPT/HCPCS: 97110 ==

== ENCOUNTER 2022-09-08 08:58 | Outpatient (CLI) | payer MEDICARE, MEDICAID, SELFPAY ==
--- NOTE | 2022-09-08 09:08 | XR_ITS ---
WS: [id number] KUB, AP view, 09/08/2022 Clinical Data: Renal Calculi Comparison: KUB, 10/04/2021. Findings: No abnormal intraabdominal masses or calcifications are seen. There is no dilatated small bowel or ev idence of obstruction. There is fecal material in the ascending colon. XR/XR KUB [id number] Impression: Negative KUB.
== END 2022-09-08 08:59 | disposition home or self-care (01) ==
PROVIDERS: PCP Family Medicine; Visit Provider Urology
DX: N20.0 Calculus of kidney (principal)
CPT/HCPCS: 74018; 81003; 99213

== ENCOUNTER 2023-01-12 10:13 | Inpatient (IN) | payer MEDICARE, MEDICAID, SELFPAY ==
[2023-01-12] VITALS (9 sets, daily range): BP systolic 139–167; BP diastolic 81–96; PULSE 95–117; RESP 18–22; TEMP 36.4–36.9; O2SAT 87–92; BMI 28.1
--- NOTE | 2023-01-12 11:28 | XR_ITS ---
WS: [id number] Portable AP upright chest, 01/12/2023 Clinical Data: sob Comparison: Portable chest, 11/20/2017 Findings: No nodules, masses or effusions are seen. The heart is normal. The pulmonary vascularity is not increased. No pneumonia or pneumothorax is seen. XR/XR chest 1V portable [id number] Impression: Negative chest.
--- NOTE | 2023-01-12 11:58 | ED_ITS ---
HPI - SOB/Dyspnea General: Chief Complaint: Shortness of Breath/Dyspnea Stated Complaint: O2 stats low Time Seen by Provider: 01/12/23 11:58 History of Present Illness: HPI Narrative: Mr. Wolfe is a 52-year-old gentleman with history of stroke on Eliquis pres enting to the emergency department for shortness of breath. Onset of symptoms approximately 4 days ago and gradual. He notes cough with productive green sputum, dyspnea initially with exertion however it is now progressed to rest. He was seen on 3 days ago and negative for COVID/flu at that time he was given steroids and an inhaler and subsequently a Z-Juanpablo yesterday however is felt improved. Intensity symptoms is severe. Course has worsened. No baseline oxygen requirement. Does have a remote history of smoking and still vapes. No other specific changes in health, exacerbating, or alleviating factors identified. 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, treated Renal calculi Stroke Family History Mother Cancer SKIN CANCER Father Healthy adult Other Diabetes Social History (Updated 01/12/23 @ 16:53 by Marcial Bernal MD) Smoking and tobacco status: former smoker Quit status (tobacco): has quit using tobacco Alcohol intake: current Alcohol intake frequency: few times a week Substance/Drug Use: unknown Caregiver/support person: Yes Lives independently: Yes Household members: spouse Housing: House Marital status: Current occupational status: disabled Physical Exam Const: COMMON NORMALS: alert GENERAL APPEARANCE: cooperative, well developed and ill appearing HENMT: COMMON NORMALS: normocephalic and atraumatic HEAD & SCALP: normocephalic and atraumatic Eye: COMMON NORMALS: conjunctivae normal CONJUNCTIVA: Yes conjunctivae normal SCLERA: sclerae normal Neck/C-Spine: COMMON NORMALS: supple GENERAL: Yes trachea midline Resp: EFFORT & INSPECTION: Yes tachypneic AUSCULTATION: diminished lung sounds Cardio: COMMON NORMALS: regular rhythm RATE: tachycardic RHYTHM: regular rhythm GI: COMMON NORMALS: Soft to palpation PALPATION: Yes Soft to palpation and No Tenderness to palpation present (GI) Extremity: GENERAL: Yes normal exam except as noted and No edema Neuro: COMMON NORMALS: moves all extremities SENSORIUM/ORIENTATION: Yes alert and No Orientation impaired Psych: COMMON NORMALS: mental status grossly normal and Normal thought process present THOUGHT PROCESS: Normal thought process present Course Vital Signs: Vital signs: Vital Signs Temperature 97.7 F 01/14/23 08:00 Pulse Rate 85 01/14/23 15:34 Respiratory Rate 17 01/14/23 14:28 Blood Pressure 140/97 01/14/23 08:00 Pulse Oximetry 91 01/14/23 14:28 Oxygen Delivery Me thod 01/14/23 14:28 Oxygen Flow Rate 1 01/14/23 09:41 Fraction of Inspir ed Oxygen 1 01/13/23 13:57 MDM - SOB/Dyspnea Medical Decision Making 52-year-old gentleman presenting with respiratory symptoms be hypoxemic on room air with no baseline oxygen requirement currently requiring oxygen with mild tachycardia and tachypnea. Patient is nontoxic on exam. Exam otherwise as above. EKG notable for sinus tachycardia, normal axis and intervals, no STEMI. Labs notable for leukocytosis, normal hemoglobin and platelet count. Metabolic panel with perhaps mild evidence of dehydration. Negative range 2-hour delta troponin. No UTI. Rapid viral testing is negative. Chest x-ray with no lobar consolidation or pneumothorax. During ED course patient treated with albuterol, steroids, analgesia, repeat RT treatment, fluids. Most likely etiology of patient's symptoms is exacerbation of COPD with new oxygen requirement. The results of ED evaluation were discussed with the patient including plan for admission due to requirement for level of care not available if discharged to prevent significant worsening/deterioration. Patient agreeable with plan. Discussed with hospitalist service who was agreeable to admit patient. Medical Records I reviewed the patient's medical records. Lab Data I reviewed the patient's lab results. 01/14/23 05:45 01/14/23 05:45 Labs/Radiology: Radiology Impressions Chest X-Ray 01/12/23 11:28 Impression: Negative chest. Chest CT 01/12/23 16:47 IMPRESSION: 1. Tree-in-bud opacities bilaterally which are most prominent in the lower lobes and right upper lobe with some sparing of the right middle lobe left upper lobe most consistent with tuberculosis versus other inflammatory process. 2. Shotty mediastinal adenopathy which may be reactive. 3. 2.4 x 2.3 x 1.5 cm semi solid opacity in the left paraspinous lung base which could represent rounded atelectasis versus scar tissue. Axial series 4, images 54-55. Laboratory Results WBC 8.7 10^3/uL (4.0-10.0) 01/13/23 02:24 RBC 4.54 10^6/uL (4.1-5.3) 01/13/23 02:24 Hgb 15.3 g/dL (11.7-16.6) 01/13/23 02:24 Hct 43.3 % (42.0-52.0) 01/13/23 02:24 MCV 95.4 fl (80-94) H 01/13/23 02:24 MCH 33.7 pg (28.0-34.0) 01/13/23 02:24 MCHC 35.3 g/dL (30.0-36.0) D 01/13/23 02:24 RDW 12.7 % (12.1-15.1) 01/13/23 02:24 Plt Count 350 10^3/cmm (130-400) 01/13/23 02:24 MPV 8.7 fL (7.4-10.4) 01/13/23 02:24 Neut % (Auto) 89.3 % 01/13/23 02:24 Lymph % (Auto) 7.1 % 01/13/23 02:24 [place] % (Auto) 3.0 % 01/13/23 02:24 Eos % (Auto) 0.0 % 01/13/23 02:24 Baso % (Auto) 0.1 % 01/13/23 02:24 Neut # (Auto) 7.78 10^3/uL (1.8-7.7) H 01/13/23 02:24 Lymph # (Auto) 0.6 10^3/uL (0.8-4.8) L 01/13/23 02:24 [place] # (Auto) 0.3 10^3/uL (0.2-0.9) 01/13/23 02:24 Eos # (Auto) 0.0 10^3/uL (0.0-0.8) 01/13/23 02:24 Baso # (Auto) 0.0 10^3/uL (0.0-0.1) 01/13/23 02:24 Nucleated RBC % (auto) 0 % 01/13/23 02:24 Nucleated RBCs # 0.0 /100WBC 01/13/23 02:24 D-Dimer 0.58 ug/mIFEU (0-0.59) 01/12/23 12:10 Sodium 140 mmol/L (136-145) 01/13/23 02:24 Potassium 4.1 mmol/L (3.5-5.1) 01/13/23 02:24 Chloride 102 mmol/L (98-107) 01/13/23 02:24 Carbon Dioxide 27 mmol/L (22-29) 01/13/23 02:24 Anion Gap 15.1 (5-19) 01/13/23 02:24 BUN 16 mg/dL (6-20) 01/13/23 02:24 Creatinine 0.7 mg/dL (0.7-1.2) 01/13/23 02:24 GFR Calculation 118.4 mL/min (90-130) 01/13/23 02:24 Glucose 140 mg/dL (65-115) H 01/13/23 02:24 Estimat Average Glucose 105 01/13/23 02:24 Hemoglobin A1c 5.3 % (4.0-6.0) 01/13/23 02:24 Calculated Osmolality 293 mOsm/kg (285-295) 01/13/23 02:24 Lactic Acid 1.3 mmol/L (0.5-2.2) 01/12/23 12:10 Calcium 9.0 mg/dL (8.5-10.5) 01/13/23 02:24 Phosphorus 2.8 mg/dL (2.5-4.5) 01/13/23 02:24 Magnesium 2.1 mg/dL (1.7-2.3) 01/13/23 02:24 Iron 19 ug/dL (59-158) L 01/12/23 18:15 TIBC 210 mcg/dl 01/12/23 18:15 % Saturation 9.0 % (20-50) L 01/12/23 18:15 Unsat Iron Binding 191 ug/dL (112-347) 01/12/23 18:15 Total Bilirubin 0.6 mg/dL (0.15-1.2) 01/13/23 02:24 AST 28 U/L (0-40) 01/13/23 02:24 ALT 26 U/L (0-41) 01/13/23 02:24 Alkaline Phosphatase 80 U/L (40-130) 01/13/23 02:24 Troponin T Baseline 12 ng/L (0-15) 01/12/23 12:10 Troponin T 120 Minute 9.02 ng/L (0-15) 01/12/23 14:07 Delta Troponin T -3 ABS# (0-10) L 01/12/23 14:07 Troponin T Hi Sens 6Hr 6.54 ng/L (0-15) 01/12/23 18:15 Troponin T Hi Sens 6Hr Delta -5.46 ng/L (0-12) L 01/12/23 18:15 C-Reactive Protein 159.9 mg/L (0.0-4.9) H 01/12/23 12:10 NT-Pro-B Natriuret Pep 145 pg/mL (0-125) H 01/12/23 12:10 Total Protein 7.2 g/dL (6.6-8.7) 01/13/23 02:24 Albumin 3.5 g/dL (3.5-5.2) 01/13/23 02:24 Globulin 3.7 g/dL (1.3-4.6) 01/13/23 02:24 Triglycerides 64 mg/dL (0-150) 01/13/23 02:24 Cholesterol 97 mg/dL (0-200) 01/13/23 02:24 LDL Cholesterol, Calc 49 mg/dL (50-129) L 01/13/23 02:24 Total VLDL Cholesterol 13 mg/dL (0-30) 01/13/23 02:24 HDL Cholesterol 35 mg/dL (60-100) L 01/13/23 02:24 Cholesterol/HDL Ratio 2.77 mg/dL (1.0-5.00) 01/13/23 02:24 Vitamin B12 320 pg/mL (232-1245) 01/12/23 12:10 Folate 8.5 ng/mL (4.5-32.2) 01/12/23 12:10 Procalcitonin 0.25 ng/mL (0-0.5) 01/12/23 12:10 Procalcitonin 0.27 ng/mL (0-0.5) 01/12/23 12:10 TSH 1.47 uIU/mL (0.27-4.20) 01/12/23 12:10 Urine Color Yellow (Yellow) 01/12/23 15:45 Urine Appearance Clear (CLEAR) 01/12/23 15:45 Urine pH 5 (5-7) 01/12/23 15:45 Ur Specific [place] 1.010 (1.005-1.030) 01/12/23 15:45 Urine Protein Trace (Negative) 01/12/23 15:45 Urine Glucose (UA) Norm (Normal) 01/12/23 15:45 Urine Ketones 2+ (Negative) H 01/12/23 15:45 Urine Blood Neg (Negative) 01/12/23 15:45 Urine Nitrate Negative (Negative) 01/12/23 15:45 Urine Bilirubin Neg (Negative) 01/12/23 15:45 Urine Urobilinogen Neg mg/dL (Negative) 01/12/23 15:45 Ur Leukocyte Esterase Negative (Negative) 01/12/23 15:45 Urine RBC None /hpf (0-2) 01/12/23 15:45 Urine WBC None /hpf (0-5) 01/12/23 15:45 Ur Squamous Epith Cells Rare /hpf (0-5) 01/12/23 15:45 Amorphous Sediment Trace /hpf 01/12/23 15:45 Urine Bacteria None /hpf (NONE) 01/12/23 15:45 Urine Opiates Screen Positive ng/mL (Negative) H 01/12/23 15:45 Ur Barbiturates Screen Negative ng/mL (Negative) 01/12/23 15:45 Ur Phencyclidine Scrn Negative ng/mL (Negative) 01/12/23 15:45 Ur Amphetamines Screen Negative ng/mL (Negative) 01/12/23 15:45 U Benzodiazepines Scrn Negative ng/mL (Negative) 01/12/23 15:45 Urine Cocaine Screen Negative ng/mL (Negative) 01/12/23 15:45 U Marijuana (THC) Screen Positive ng/mL (Negative) H 01/12/23 15:45 JOHN-1 Antibody <1.0 neg AI (<1.0 NEG) 01/13/23 02:24 SS-A/Ro IgG Antibody <1.0 neg AI (<1.0 NEG) 01/13/23 02:24 SS-B/La IgG Antibody <1.0 neg AI (<1.0 NEG) 01/13/23 02:24 Anti-nRNP/Sm IgG Ab <1.0 neg AI (<1.0 NEG) 01/13/23 02:24 Scl-70 Scleroderma Ab <1.0 neg AI (<1.0 NEG) 01/13/23 02:24 Anti-ds DNA IgG Ab <1 IU/mL 01/13/23 02:24 Coronavirus 229E (PCR) Not detected (NOT DETECT) 01/12/23 16:30 Hepatitis A IgM Ab Non-reactive (Nonreactive) 01/13/23 02:24 Hep Bs Antigen Non-reactive (Nonreactive) 01/13/23 02:24 Hep Bs Antibody 3.5 (11.5-1000) L 01/13/23 02:24 Hep B Core Total Ab Non-reactive (Nonreactive) 01/13/23 02:24 Hepatitis C Antibody Reactive (Nonreactive) H 01/13/23 02:24 HCV RNA (PCR) IUs/ml 6.89 Log IU/mL (NOT DETECTED) H 01/13/23 03:33 HCV RNA (PCR) IU log10 [id number] IU/mL (NOT DETECTED) H 01/13/23 03:33 HIV 1&2 Ab & HIV 1 Ag Non-reactive (Non-Reactiv) 01/13/23 02:24 HIV 1&2 Antibody Non-reactive (Non-Reactiv) 01/13/23 02:24 Influenza Type A Ag negative (Negative) 01/12/23 17:30 Influenza Type B Ag negative (Negative) 01/12/23 17:30 SARS-CoV-2 (PCR) Not detected (NOT DETECT) 01/12/23 16:30 Discharge Plan Discharge Patient Disposition: Placed in Observation Admit Provider: Marcial Bernal Clinical Impression: Acute exacerbation of chronic obstructive airways disease, Hypoxia Discharge Diet: Regular Discharge Activity: Resume usual activity and Increase activity as tolerated Coding Level of Care Code ED Project Scientist for Angela Slater
--- NOTE | 2023-01-12 12:12 | ECG_ITS ---
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 Measurements Intervals [place] Rate: 115 P: 55 IA: 123 QRS: 50 QRSD: 73 T: 55 QT: 319 QTc: 442 Interpretive Statements SINUS TACHYCARDIA MODERATE ST DEPRESSION [0.05+ mV ST DEPRESSION] Compared to ECG 11/22/2018 16:51:00 ST (T wave) deviation now present Sinus rhythm no longer present Electronically Signed On 01-12-2023 23:38:39 PULP MAKING PLANT OPERATOR by Maia Benavides M.D. [id number]
[2023-01-12] MEDS: ipratropium-albuterol 3 mL Neb INHALATION (12:15)
[2023-01-12 12:33] LABS: Basophils % 0.2 %; Eosinophils % 0.2 %; Hematocrit 48.2 % (42.0-52.0); Hemoglobin 16.1 g/dL (11.7-16.6); Lymphocytes # 2.1 10^3/uL (0.8-4.8); Lymphocytes % 15.5 %; Mean Corpuscular HGB Conc 33.4 g/dL (30.0-36.0); Mean Corpuscular Hemoglobin 31.4 pg (28.0-34.0); Mean Platelet Volume 8.8 fL (7.4-10.4); Monocytes # 1.2 10^3/uL (0.2-0.9); Monocytes % 8.6 %; Neutrophils # 10.03 10^3/uL (1.8-7.7); Neutrophils % 75.2 %; Nucleated Red Blood Cells % 0 %; Platelet Count 360 10^3/cmm (130-400); Red Blood Count 5.13 10^6/uL (4.1-5.3); Red Cell Distribution Width 12.8 % (12.1-15.1); White Blood Count 13.3 10^3/uL (4.0-10.0)
[2023-01-12 12:49] LABS: Troponin(5th) Baseline 12 ng/L (0-15)
[2023-01-12 12:51] LABS: Lactic Sepsis W/Reflex 1.3 mmol/L (0.5-2.2)
[2023-01-12 13:01] LABS: NT Pro B Type Natriuretic Pept 145 pg/mL (0-125); Procalcitonin 0.27 ng/mL (0-0.5)
[2023-01-12] MEDS: morphine 4 mg/mL SDV 1 mL IVP (13:02)
[2023-01-12] MEDS: sodium chloride 0.9% 1,000 ML 999 ML IV (13:02)
[2023-01-12 13:12] LABS: Alanine Aminotransferase 30 U/L (0-41); Albumin Level 4.4 g/dL (3.5-5.2); Alkaline Phosphatase 97 U/L (40-130); Aspartate Amino Transferase 46 U/L (0-40); Blood Urea Nitrogen 15 mg/dL (6-20); C Reactive Protein 159.9 mg/L (0.0-4.9); Calcium 9.6 mg/dL (8.5-10.5); Carbon Dioxide 24 mmol/L (22-29); Chloride 98 mmol/L (98-107); Glomerular Filtration Rate 118.4 mL/min (90-130); Glucose 95 mg/dL (65-115); Osmolality Calculated 285 mOsm/kg (285-295); Sodium 137 mmol/L (136-145); Total Bilirubin 0.9 mg/dL (0.15-1.2); Total Protein 7.4 g/dL (6.6-8.7)
[2023-01-12 13:17] LABS: Anion Gap 19.1 (5-19); Potassium 4.1 mmol/L (3.5-5.1)
[2023-01-12] MEDS: albuterol 2.5 mg/3 mL Neb INHALATION (13:20)
--- NOTE | 2023-01-12 13:58 | ECG_ITS ---
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 Measurements Intervals [place] Rate: 119 P: 21 CA: 127 QRS: 34 QRSD: 76 T: 46 QT: 333 QTc: 469 Interpretive Statements SINUS TACHYCARDIA NONSPECIFIC T-WAVE ABNORMALITY ABNORMAL RHYTHM ECG Compared to ECG 01/12/2023 12:12:48 T-wave abnormality now present ST (T wave) deviation no longer present Electronically Signed On 01-12-2023 23:54:02 SEED CORE OPERATOR by Maia Benavides M.D. [id number]
[2023-01-12 14:22] LABS: D Dimer 0.58 ug/mIFEU (0-0.59)
[2023-01-12 14:33] LABS: Troponin 5 2HR 9.02 ng/L (0-15)
[2023-01-12 14:50] LABS: Troponin 5 2HR Delta -3 ABS# (0-10)
--- NOTE | 2023-01-12 16:47 | CTR_ITS ---
PROCEDURE INFORMATION: Exam: CT Chest Without Contrast; Diagnostic Exam date and time: 01/12/2023 4:55 PM Age: 52 years old Clinical indication: Shortness of breath; Additional info: Copd/pna TECHNIQUE: Imaging protocol: Diagnostic computed tomography of the chest without contrast. Radiation optimization: All CT scans at this facility use at least one of these dose optimization techniques: automated exposure control; mA and/or kV adjustment per patient size (includes targeted exams where dose is matched to clinical indication); or iterative reconstruction. REPORTING DATA: Count of CT and Cardiac NM exams in prior 12 months: This patient has received 0 known CTs and 0 known cardiac nuclear medicine studies in the 12 months prior to the current study. COMPARISON: CR XR chest 1V portable [id number] 01/12/2023 11:36 AM RADIATION DOSE METRICS: Total DLP (mGy-cm): 436.95 FINDINGS: Lungs: Tree-in-bud opacities bilaterally which are most prominent in the lower lobes and right upper lobe with some sparing of the right middle lobe left upper lobe most consistent with tuberculosis versus other inflammatory process. 2.4 x 2.3 x 1.5 cm semi solid opacity in the left paraspinous lung base which could represent rounded atelectasis versus scar tissue. Axial series 4, images 54-55. Pleural spaces: Unremarkable. No pneumothorax. No pleural effusion. Heart: No obvious coronary artery calcifications. No cardiomegaly. No pericardial effusion. Lymph nodes: Shotty mediastinal adenopathy which may be reactive. Vasculature: Unremarkable. No aortic aneurysm. Bones/joints: Unremarkable. No acute fracture. Soft tissues: Unremarkable. CT/CT chest [facility] [id number] IMPRESSION: 1. Tree-in-bud opacities bilaterally which are most prominent in the lower lobes and right upper lobe with some sparing of the right middle lobe left upper lobe most consistent with tuberculosis versus other inflammatory process. 2. Shotty mediastinal adenopathy which may be reactive. 3. 2.4 x 2.3 x 1.5 cm semi solid opacity in the left paraspinous lung base which could represent rounded atelectasis versus scar tissue. Axial series 4, images 54-55.
--- NOTE | 2023-01-12 16:48 | P.HP_ITS ---
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 For the same complaint he went to his primary care provider before and was started on azithromycin and prednisone. Medication did not help much sleep decided to come to the ER. States he has a sick contact in his grandchild who has been having upper respiratory infection. Denies of having any COPD or difficulty in breathing in the past. States he was exposed to tuberculosis and tested positive for skin test around 25 already years ago. Blood work in the ER showed a white count 13,000, hemoglobin of 16, sodium of 133, D-dimer 0.5, creatinine 0.7, baseline troponin of 9 with proBNP of 145 Review of Systems General: Reports: 10 or more systems reviewed and unremarkable except in HPI and below Const: Denies: fever(s), chills, body aches, change in appetite, change in weight, malaise, night sweats, diaphoresis, change in sleep pattern, daytime sleepiness or snoring Eyes: Denies: change in vision, blurry vision, photophobia, eye discomfort or eye discharge ENMT: Denies: throat pain, enlarged tonsils, hoarseness, mouth pain, oral sores, dry mouth, tinnitus, nasal congestion or post nasal drip Card: Denies: chest pain, palpitations, irregular heart rhythm, edema, swelling of feet/ankles, lightheadedness, syncope, pre-syncope, dyspnea on exertion, orthopnea, leg pain with exertion or acrocyanosis Resp: Denies: dyspnea, productive cough, non-productive cough, wheezing, stridor, pain on inspiration, change in phlegm color, hemoptysis or chest congestion GI: Denies: abdominal pain, nausea, vomiting, hematemesis, coffee ground emesis, dysphagia, heartburn, diarrhea, constipation, bloating, GI cramping, change in bowel habits, pain on defecation, hematochezia or melena : Denies: flank pain, difficulty urinating, dysuria, urinary frequency, urinary urgency, urinary hesitancy, urinary dribbling, difficulty starting urination, change in urine stream, nocturia or hematuria Musc: Denies: neck pain, back pain, extremity pain, joint pain, joint swelling, joint redness, joint stiffness or limited range of motion Neuro: Denies: headache(s), numbness in extremities, weakness in extremities, sensory changes, lack of coordination, difficulty walking, frequent falls, dizz iness, vertigo, confusion, Slurred speech present, difficulty communicating thoughts or seizure-like activity Psych: Denies: anxiety, depression, mood swings, panic attacks, hopelessness or irritability Endo: Denies: polyuria, polydipsia, tired all the time, cold intolerance, excessive sweating, flushing or heat intolerance Nick/Lymph: Denies: easy bruising or easy bleeding All/Imm: Denies: tongue swelling, facial swelling or acute wheezing Medications/Allergies Home Medications Medication Instructions Recorded Confirmed Last Taken Type acetaminophen 500 mg tablet 1,000 mg PO Q6H PRN Pain 09/11/20 01/12/23 11/22/20 History (Tylenol Extra Strength) apixaban 5 mg tablet (Eliquis) 5 mg PO BID 09/11/20 01/12/23 01/12/23 04:00 History atorvastatin 40 mg tablet 40 mg PO DAILY@199909/11/20 01/12/23 01/11/23 History albuterol sulfate 90 mcg/actuation 2 puff inhalation QID PRN 01/11/23 01/12/23 Unknown Rx aerosol inhaler shortness of breath or wheezing #6.7 grams azithromycin 250 mg tablet See Rx Instructions PO .COMPLEX #6 01/11/23 01/12/23 01/12/23 Rx tabs benzonatate 100 mg capsule 100 - 200 mg PO TID PRN Cough 01/12/23 01/12/23 01/12/23 History betamethasone dipropionate 0.05 % 1 applic topical BID PRN unknown 01/12/23 01/12/23 Unknown History topical ointment bupropion HCl 150 mg 24 hr tablet, 150 mg PO BEDTIME 01/12/23 01/12/23 01/11/23 History extended release (Wellbutrin XL) cyclobenzaprine 5 mg tablet 5 mg PO DAILY PRN Muscle Spasm 01/12/23 01/12/23 Unknown History fluticasone propionate 50 2 spray intranasal DAILY 01/12/23 01/12/23 Unknown History mcg/actuation nasal spray,suspension (Flonase Allergy Relief) pantoprazole 20 mg tablet,delayed 20 mg PO BID 01/12/23 01/12/23 Unknown History release prednisone 20 mg tablet 40 mg PO DAILY 01/12/23 01/12/23 01/11/23 History finished 01/11/23 Allergies Allergy/AdvReac Type Severity Reaction Status Date / Time No Known Allergies Allergy Verified 01/12/23 13:08 PFSH Acute PFSH: Medical History Anxiety and depression GERD (gastroesophageal reflux disease) History of nonmelanoma skin cancer Left ureteral stone Memory loss 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) Renal calculi Stroke Family History Mother Cancer SKIN CANCER Father Healthy adult Other Diabetes Social History (Updated 01/12/23 @ 16:53 by Marcial Bernal MD) Smoking and tobacco status: former smoker Quit status (tobacco): has quit using tobacco Alcohol intake: current Alcohol intake frequency: few times a week Substance/Drug Use: unknown Caregiver/support person: Yes Lives independently: Yes Household members: spouse Housing: House Marital status: Current occupational status: disabled Vitals/I&O/Wt Last Vital Signs Temp 98.4 F 01/12/23 10:42 Pulse 110 H 01/12/23 13:20 Resp 19 H 01/12/23 14:38 BP 167/96 01/12/23 14:38 Pulse Ox 91 01/12/23 14:38 O2 Del Method 01/12/23 14:38 O2 Flow Rate 3 01/12/23 14:38 Weight last 48 hrs Weight 88.904 kg Physical Exam Narrative: General: No acute distress, AO x3 HEENT: PERRLA, pupils bilaterally equal and reactive Chest: Bilateral bronchial breath sounds, rhonchi diffuse all over lung prather, equal good air entry bilaterally CVS: S1-S2 regular, no murmurs, no tachycardia, no gallops, no rubs Abdomen: Soft, nontender, no organomegaly, bowel sounds present Neuro: No focal deficits, no facial deformity, AO x3, power 5/5 in all limbs Data 01/12/23 12:10 01/12/23 12:10 Micro: Microbiology 01/12/23 12:27 Blood Culture - Preliminary Blood SPECIMEN COLLECTED 01/12/23 12:10 Blood Culture - Preliminary Blood SPECIMEN COLLECTED A&P Assessment and plan (1) Hypoxia: Hypoxia most likely in setting of exacerbation of COPD from bronchitis. COVID-19 PCR sent out in the ER. Will check flu swab. Patient is current vape smoker. Former cigarette smoker. D-dimer negative. CT chest without contrast. X-ray negative for consolidation. Hold off on antibiotics. (2) Acute exacerbation of chronic obstructive airways disease: Urine Legionella, bacterial antigen, MRSA swab, sputum culture. Start on ipratropium, Xopenex every 6 hours on budesonide twice daily. Solu-Medrol 40 mg every 8 hourly. Oxygen supplementation keeping saturation over 90%. (3) Hypertension: No known family history. Goal blood pressure less than 140/90 mmHg. Blood pressure currently elevated. Tachycardia. Lactate negative. Start on low-dose beta-jessica 25 mg twice daily. Will uptitrate as per blood pressures. Plan Further treatment as per results of pending results. Counseled patient in detail regarding trying to quit vaping. Full code. Protonix for PUD prophylaxis Eliquis will suffice for DVT prophylaxis Cardiac diet. Attestations Medical Necessity Statement*: Admission under observation for less than 2 midnights for management of hypoxia in setting of possible COPD exacerbation Diagnoses Hypoxia R09.02 Acute exacerbation of chronic obstructive airways disease J44.1 Hypertension I10
[2023-01-12 17:27] LABS: Add Urine Microscopic? YES; Amphetamines Screen Urine Negative (Negative); Barbiturates Screen Urine Negative (Negative); Benzodiazepines Screen Urine Negative (Negative); Bilirubin Urine Neg (Negative); Blood Urine Neg (Negative); Cocaine Screen Urine Negative (Negative); Glucose Urine UA Norm (Normal); Ketones Urine 2+ (Negative); Leukocyte Esterase Urine Negative (Negative); Nitrate Urine Negative (Negative); Opiate Screen Urine Positive (Negative); PCP Screen Urine Negative (Negative); Protein Urine Trace (Negative); THC Screen Urine Positive (Negative); Urine Appearance Clear (CLEAR); Urine Color Yellow (Yellow); Urobilinogen Urine Neg (Negative); pH Urine 5 (5-7)
[2023-01-12 17:28] LABS: Add Urine Culture? No; Amorphous Sediment Urine TRACE /hpf; Squamous Epithelial Cell Urine RARE /hpf (0-5)
[2023-01-12 17:59] LABS: Influenza A by IFA negative (Negative); Influenza B by IFA negative (Negative)
[2023-01-12 18:03] LABS: Folate Level 8.5 ng/mL (4.5-32.2)
[2023-01-12 18:04] LABS: Procalcitonin 0.25 ng/mL (0-0.5); Vitamin B12 320 pg/mL (232-1245)
[2023-01-12 18:09] LABS: Thyroid Stimulating Hormone 1.47 uIU/mL (0.27-4.20)
--- NOTE | 2023-01-12 18:14 | ECG_ITS ---
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 Measurements Intervals [place] Rate: 89 P: 69 MO: 156 QRS: 46 QRSD: 76 T: 64 QT: 363 QTc: 443 Interpretive Statements SINUS RHYTHM Compared to ECG 01/12/2023 13:26:10 Sinus tachycardia no longer present T-wave abnormality no longer present Electronically Signed On 01-12-2023 23:56:56 FORMING MACHINE ADJUSTER by Maia Benavides M.D. [id number]
[2023-01-12 18:58] LABS: Iron 19 ug/dL (59-158); Total Iron Binding Capacity 210 mcg/dl; Unsaturated Iron Binding 191 ug/dL (112-347)
[2023-01-12 19:03] LABS: Troponin 5 6HR 6.54 ng/L (0-15)
[2023-01-12 19:13] LABS: Troponin 5 6HR Delta -5.46 ng/L (0-12)
[2023-01-12 20:16] LABS: Adenovirus Not Detected (NOT DETECT); Chlamydia Pneumoniae Not Detected (NOT DETECT); Coronavirus 229E,HKU1,NL63,OC4 Not Detected (NOT DETECT); Human Metapneumovirus Not Detected (NOT DETECT); Human Rhinovirus/Enterovirus Not Detected (NOT DETECT); Influenza A Not Detected (NOT DETECT); Influenza A H1 Not Detected (NOT DETECT); Influenza A H1-2009 Not Detected (NOT DETECT); Influenza A H3 Not Detected (NOT DETECT); Influenza B Not Detected (NOT DETECT); Mycoplasma Pneumoniae Not Detected (NOT DETECT); Parainfluenza Virus Type 1 Not Detected (NOT DETECT); Parainfluenza Virus Type 2 Not Detected (NOT DETECT); Parainfluenza Virus Type 3 Not Detected (NOT DETECT); Parainfluenza Virus Type 4 Not Detected (NOT DETECT); Respiratory Syncytial Virus A Not Detected (NOT DETECT); Respiratory Syncytial Virus B Not Detected (NOT DETECT); SARS-COV-2 Not Detected (NOT DETECT)
[2023-01-12] MEDS: ipratropium 0.5 mg/2.5 mL Neb INHALATION (20:42)
[2023-01-12] MEDS: budesonide 0.5 mg/2 mL Neb INHALATION (20:42)
[2023-01-12] MEDS: levalbuterol 0.63 mg/3 mL Neb INHALATION (20:42)
[2023-01-12] MEDS: atorvastatin 40 mg Tablet PO (21:07)
[2023-01-12] MEDS: buPROPion XL (24 HR) 150 mg Tablet PO (21:07)
[2023-01-12] MEDS: docusate sodium 100 mg Capsule PO (21:07)
[2023-01-12] MEDS: apixaban 5 mg Tablet PO (21:07)
[2023-01-12] MEDS: sodium chloride 0.9% 1,000 ML 75 ML IV (21:08)
[2023-01-13] VITALS (16 sets, daily range): BP systolic 125–156; BP diastolic 81–97; PULSE 74–99; RESP 15–20; TEMP 36.8–37.1; O2SAT 88–96
[2023-01-13 02:55] LABS: Basophils % 0.1 %; Hematocrit 43.3 % (42.0-52.0); Hemoglobin 15.3 g/dL (11.7-16.6); Lymphocytes # 0.6 10^3/uL (0.8-4.8); Lymphocytes % 7.1 %; Mean Corpuscular HGB Conc 35.3 g/dL (30.0-36.0); Mean Corpuscular Hemoglobin 33.7 pg (28.0-34.0); Mean Corpuscular Volume 95.4 fl (80-94); Mean Platelet Volume 8.7 fL (7.4-10.4); Monocytes # 0.3 10^3/uL (0.2-0.9); Neutrophils # 7.78 10^3/uL (1.8-7.7); Neutrophils % 89.3 %; Nucleated Red Blood Cells % 0 %; Platelet Count 350 10^3/cmm (130-400); Red Blood Count 4.54 10^6/uL (4.1-5.3); Red Cell Distribution Width 12.7 % (12.1-15.1); White Blood Count 8.7 10^3/uL (4.0-10.0)
[2023-01-13 03:13] LABS: Alanine Aminotransferase 26 U/L (0-41); Albumin Level 3.5 g/dL (3.5-5.2); Alkaline Phosphatase 80 U/L (40-130); Anion Gap 15.1 (5-19); Aspartate Amino Transferase 28 U/L (0-40); Blood Urea Nitrogen 16 mg/dL (6-20); Carbon Dioxide 27 mmol/L (22-29); Chloride 102 mmol/L (98-107); Globulin 3.7 g/dL (1.3-4.6); Glomerular Filtration Rate 118.4 mL/min (90-130); Glucose 140 mg/dL (65-115); Magnesium 2.1 mg/dL (1.7-2.3); Osmolality Calculated 293 mOsm/kg (285-295); Phosphorus 2.8 mg/dL (2.5-4.5); Potassium 4.1 mmol/L (3.5-5.1); Sodium 140 mmol/L (136-145); Total Bilirubin 0.6 mg/dL (0.15-1.2); Total Protein 7.2 g/dL (6.6-8.7)
[2023-01-13 03:14] LABS: Chol HDL Ratio 2.77 mg/dL (1.0-5.00); Cholesterol 97 mg/dL (0-200); HDL Cholesterol 35 mg/dL (60-100); LDL Cholesterol Calculated 49 mg/dL (50-129); Triglycerides 64 mg/dL (0-150); VLDL Cholestrol Calculation 13 mg/dL (0-30)
[2023-01-13 03:24] LABS: Estmated Average Glucose 105; Hemoglobin A1C 5.3 % (4.0-6.0)
[2023-01-13 03:31] LABS: Hepatitis A Antibody IgM Non-Reactive (Nonreactive); Hepatitis B Core AB, Total Non-Reactive (Nonreactive); Hepatitis B Surface AB 3.5 (11.5-1000); Hepatitis B Surface Antigen Non-Reactive (Nonreactive); Hepatitis C Virus Antibody Reactive (Nonreactive)
[2023-01-13] MEDS: levalbuterol 0.63 mg/3 mL Neb INHALATION ×4 (03:35→20:45)
[2023-01-13] MEDS: ipratropium 0.5 mg/2.5 mL Neb INHALATION ×4 (03:35→20:45)
[2023-01-13 03:49] LABS: HIV 1 & 2 Antibody Non-Reactive (Non-Reactiv); HIV 1 & 2 Antigen Non-Reactive (Non-Reactiv)
[2023-01-13] MEDS: pantoprazole DR 40 mg Tablet PO (08:16)
[2023-01-13] MEDS: docusate sodium 100 mg Capsule PO ×2 (08:16→18:18)
[2023-01-13] MEDS: metoprolol tartrate 25 mg Tablet PO ×2 (08:16→19:49)
[2023-01-13] MEDS: pneumococcal (23 valent) SDV 0.5 mL IM (08:16)
[2023-01-13] MEDS: apixaban 5 mg Tablet PO ×2 (08:16→18:18)
[2023-01-13] MEDS: fluticasone nasal spray 16gm Btl 2 SPRAY INTRANASAL (08:19)
[2023-01-13] MEDS: budesonide 0.5 mg/2 mL Neb INHALATION ×2 (08:21→20:45)
--- NOTE | 2023-01-13 10:13 | PC.CHAP ---
Pastoral Care Encounter/Spiritual Assessment Type of Contact [] Declined spout liner helper visit [] Patient/Family/Request visit [] Outpatient visit [] Follow-up visit [] Physician referral [] Code/Alert [x] Routine visit [] Staff referral [] Actively dying [] Patient sleeping [] Family support [] [x] Out of room [] Palliative care [] [] Receiving care in room [] Pre-surgical visit [] Trauma [] Long length of stay [] ICU visit [] Other: Relational/Emotional Strength [] Patient feels connected with others/family/visitors/staff [] Distress [] Loneliness/isolation [] Abandonment Spirituality of Patient [] Person of Zayda [] Attends Spiritism of their Zayda [] Believes in Prayer [] Reads Bible or Yarsanism materials [] There are Spiritual issues to be addressed Jig Bore Operator Interventions [] Prayer [] Active listening [] Non-anxious presence [] Spiritual/emotional support [] Crisis/trauma care [] Spiritual counseling [] Bereavement support [] Provided bereavement packet [] Provided Bible/devotional materials [] Provided toy/stuffed animal, coloring book to patient or family member [] Provided Communion [] Anointing/[place] [] Salvation [] Completed spiritual assessment [] Other: Impact on Illness or Injury [] Angry [] Fearful [] Anxious [] Often cries [] Exhaustion [] Unable to work [] Unable to attend samaritan [] Unable to walk/stand [] Unable to read [] Unable to drive [] Unable to eat/drink [] Unable to sleep [] Unable to be with family [] Patient intubated [] Other: Summary Time spent with patient
--- NOTE | 2023-01-13 12:36 | P.PN_ITS ---
Subjective Subjective: No acute events overnight. States he is feeling better. Down to 1 L saturating more than 92%. Able to ambulate with some difficulty in breathing. Complaining of occasional coughing bouts which makes him out of breath. Denies any nausea, vomiting, headache. Confirms past medical history of exposure to tuberculosis but has never been tested positive other than a positive PPD around 25 or years ago. Denies any chest pain Vitals/I&O/Wt Last Vital Signs Temp 98.7 F 01/13/23 12:00 Pulse 97 01/13/23 12:00 Resp 0 L 01/13/23 12:00 BP 147/97 01/13/23 08:00 Pulse Ox 94 01/13/23 08:30 O2 Del Method 01/13/23 08:30 O2 Flow Rate 1 01/13/23 08:30 01/12/23 01/13/23 01/13/23 22:59 06:59 14:59 Intake Total 1000 / 1000 240 / 1240 120 / 120 Balance 1000 / 1000 240 / 1240 120 / 120 Weight last 48 hrs Weight 89.993 kg Weight 88.904 kg Physical Exam Narrative: General: No acute distress, AO x3, on 1 L nasal cannula oxygen supplementation HEENT: PERRLA, pupils bilaterally equal and reactive Chest: Bilateral bronchial breath sounds, rhonchi diffuse all over lung prather, equal good air entry bilaterally CVS: S1-S2 regular, no murmurs, no tachycardia, no gallops, no rubs Abdomen: Soft, nontender, no organomegaly, bowel sounds present Neuro: No focal deficits, no facial deformity, AO x3, power 5/5 in all limbs Data 01/13/23 02:24 01/13/23 02:24 Other Labs: Radiology Impressions Chest X-Ray 01/12/23 11:28 Impression: Negative chest. Chest CT 01/12/23 16:47 IMPRESSION: 1. Tree-in-bud opacities bilaterally which are most prominent in the lower lobes and right upper lobe with some sparing of the right middle lobe left upper lobe most consistent with tuberculosis versus other inflammatory process. 2. Shotty mediastinal adenopathy which may be reactive. 3. 2.4 x 2.3 x 1.5 cm semi solid opacity in the left paraspinous lung base which could represent rounded atelectasis versus scar tissue. Axial series 4, images 54-55. Micro: Microbiology 01/12/23 12:10 Blood Culture - Preliminary Blood NEGATIVE TO DATE 01/12/23 15:45 Legionella Urinary Antigen - Final Unknown Source 01/12/23 12:27 Blood Culture - Preliminary Blood SPECIMEN COLLECTED A&P Assessment and plan (1) Hypoxia: Hypoxia most likely in setting of exacerbation of COPD from bronchitis. Flu and COVID-19 negative. Current weight smoker. Appreciate CT chest results. Consistent with vape induced lung injury versus atypical infection. Given history of exposure to tuberculosis in the past along with radiology read of CT chest for now we will rule out tuberculosis with AFB culture on sputum x3. Isolation as per protocol. We will start on azithromycin 500 mg daily for at least 5 days. (2) Acute exacerbation of chronic obstructive airways disease: Urine Legionella and bacterial antigen negative. MRSA swab, sputum culture pending. Start on ipratropium, Xopenex every 6 hours on budesonide twice daily. Wean down Solu-Medrol to 40 mg twice daily. We will continue quick taper. Continue to wean oxygen keeping saturation over 90% (3) Hypertension: No known family history. Goal blood pressure less than 140/90 mmHg. Blood pressure currently elevated. Tachycardia. Lactate negative. Continue with metoprolol 25 mg twice daily. Add amlodipine 10 mg daily. Plan HIV negative. Hepatitis C positive. Hepatitis C RNA pending. Urine drug screen positive for marijuana and opiates. Full code. Protonix for PUD prophylaxis Eliquis will suffice for DVT prophylaxis Cardiac diet. Attestations Medical Necessity Statement*: Requires further hospitalization for management of hypoxia in setting of COPD exacerbation in a patient with CT chest concerning for vape induced lung injury versus atypical infection and Moderate Time for a total of 60 minutes, includes reviewing past or interval history, examining/interviewing patient, placing orders, counseling patient/family/other support, updating patient/family/other support, discussing plan of care with staff, communicating with other healthcare providers, docu menting encounter and coordinating care Diagnoses Hypoxia R09.02 Acute exacerbation of chronic obstructive airways disease J44.1 Hypertension I10
[2023-01-13] MEDS: amlodipine 10 mg Tablet PO (14:09)
[2023-01-13] MEDS: azithromycin 250 mg Tablet 500 MG PO (14:09)
[2023-01-13] MEDS: ferrous gluconate 324 mg Tablet PO (18:18)
[2023-01-13] MEDS: acetaminophen 325 mg Tablet 650 MG PO (19:49)
[2023-01-13] MEDS: atorvastatin 40 mg Tablet PO (19:49)
[2023-01-13] MEDS: buPROPion XL (24 HR) 150 mg Tablet PO (19:50)
[2023-01-13] MEDS: sodium chloride 3.5% neb 4 mL Neb 12 ML INHALATION (20:44)
[2023-01-14] VITALS (10 sets, daily range): BP systolic 140–143; BP diastolic 88–97; PULSE 56–87; RESP 17–20; TEMP 36.5–36.6; O2SAT 90–95
[2023-01-14] MEDS: ipratropium 0.5 mg/2.5 mL Neb INHALATION ×3 (02:16→14:27)
[2023-01-14] MEDS: levalbuterol 0.63 mg/3 mL Neb INHALATION ×3 (02:16→14:27)
[2023-01-14 05:56] LABS: Basophils # 0.1 10^3/uL (0.0-0.1); Basophils % 0.3 %; Hematocrit 44.9 % (42.0-52.0); Hemoglobin 15.4 g/dL (11.7-16.6); Lymphocytes # 1.6 10^3/uL (0.8-4.8); Lymphocytes % 8.4 %; Mean Corpuscular HGB Conc 34.3 g/dL (30.0-36.0); Mean Corpuscular Hemoglobin 32.3 pg (28.0-34.0); Mean Corpuscular Volume 94.1 fl (80-94); Mean Platelet Volume 8.5 fL (7.4-10.4); Monocytes # 0.9 10^3/uL (0.2-0.9); Monocytes % 4.7 %; Neutrophils # 15.86 10^3/uL (1.8-7.7); Neutrophils % 85.5 %; Nucleated Red Blood Cells % 0 %; Platelet Count 443 10^3/cmm (130-400); Red Blood Count 4.77 10^6/uL (4.1-5.3); Red Cell Distribution Width 12.5 % (12.1-15.1); White Blood Count 18.5 10^3/uL (4.0-10.0)
[2023-01-14 06:19] LABS: Alanine Aminotransferase 28 U/L (0-41); Albumin Level 3.4 g/dL (3.5-5.2); Alkaline Phosphatase 85 U/L (40-130); Aspartate Amino Transferase 24 U/L (0-40); Blood Urea Nitrogen 19 mg/dL (6-20); Calcium 9.1 mg/dL (8.5-10.5); Carbon Dioxide 25 mmol/L (22-29); Chloride 103 mmol/L (98-107); Globulin 3.7 g/dL (1.3-4.6); Glomerular Filtration Rate 118.4 mL/min (90-130); Glucose 128 mg/dL (65-115); Osmolality Calculated 294 mOsm/kg (285-295); Sodium 140 mmol/L (136-145); Total Bilirubin 0.4 mg/dL (0.15-1.2); Total Protein 7.1 g/dL (6.6-8.7)
[2023-01-14] MEDS: azithromycin 250 mg Tablet 500 MG PO (08:54)
[2023-01-14] MEDS: ferrous gluconate 324 mg Tablet PO (08:55)
[2023-01-14] MEDS: pantoprazole DR 40 mg Tablet PO (08:55)
[2023-01-14] MEDS: apixaban 5 mg Tablet PO (08:55)
[2023-01-14] MEDS: amlodipine 10 mg Tablet PO (08:55)
[2023-01-14] MEDS: fluticasone nasal spray 16gm Btl 2 SPRAY INTRANASAL (08:56)
[2023-01-14] MEDS: docusate sodium 100 mg Capsule PO (08:56)
[2023-01-14] MEDS: metoprolol tartrate 25 mg Tablet PO (08:56)
[2023-01-14] MEDS: sodium chloride 3.5% neb 4 mL Neb 12 ML INHALATION (09:38)
[2023-01-14] MEDS: budesonide 0.5 mg/2 mL Neb INHALATION (09:41)
--- NOTE | 2023-01-14 11:05 | P.DS_ITS ---
Discharge Providers Date of Admission: 01/13/23 17:08 Date of Discharge: January 14, 2023 Attending Provider at Admission: Marcial Bernal MD Attending Provider at Discharge: Marcial Bernal MD Primary Care Provider: Carmella Montelongo DO Diagnoses at Discharge Discharge Diagnosis (1) Hypoxia: Status: Acute (2) Acute exacerbation of chronic obstructive airways disease: Status: Acute (3) Hypertension: Status: Acute (4) Positive PPD, treated: Status: Acute Reason for Visit Reason for Visit: O2 stats low Hospital Course Hospital Course Marti Wolfe is a 52 year old male past medical history of multiple CVA on Eliquis, renal calculi, former smoker who currently vapes who presents to the ER today with difficulty in breathing along with cough which has been ongoing and getting worse for last 3 days.? For the same complaint he went to his primary care provider before and was started on azithromycin and prednisone.? Medication did not help much sleep decided to come to the ER.? States he has a sick contact in his grandchild who has been having upper respiratory infection.? Denies of having any COPD or difficulty in breathing in the past.? States he was exposed to tuberculosis and tested positive for skin test around 25 already years ago. Blood work in the ER showed a white count 13,000, hemoglobin of 16, sodium of 1 33, D-dimer 0.5, creatinine 0.7, baseline troponin of 9 with proBNP of 145 Patient was admitted to the hospital further evaluation and management of hypoxic respiratory failure. Patient does not carry any history of COPD in the past. CT chest was done on admission which is concerning for tree-in-bud appearance consistent with possible vape induced lung injury versus tuberculosis as read by the radiologist. CT chest was negative for consolidation. D-dimer on admission was negative. Given patient's history of exposure to tuberculosis and being PPD positive in the past sputum samples for AFB were sent out. Patient was started on treatment with inhalation treatment and IV steroids. Patient responded well to the treatment and is on minimal oxygen with resolution of rhonchi on examination. During hospitalization he was also found to have elevated blood pressures for which he was started on oral amlodipine and metoprolol. He is to continue taking amlodipine and metoprolol going forward. He has been discharged in hemodynamically stable condition on oral steroid taper, inhalation treatment and Levaquin for 1 week. Home O2 evaluation is to be done prior to discharge. Physical Exam Narrative: General: No acute distress, AO x3, on 1 L nasal cannula oxygen supplementation HEENT: PERRLA, pupils bilaterally equal and reactive Chest: Bilateral bronchial breath sounds, rhonchi diffuse all over lung prather, equal good air entry bilaterally CVS: S1-S2 regular, no murmurs, no tachycardia, no gallops, no rubs Abdomen: Soft, nontender, no organomegaly, bowel sounds present Neuro: No focal deficits, no facial deformity, AO x3, power 5/5 in all limbs Discharge Data Studies Completed and Pending Completed Studies During Hospitalization Category Date Time Status CT chest wo con [id number] Stat Cat Scan 01/12/23 16:47 Completed XR chest 1V portable [id number] Stat Exams 01/12/23 11:28 Completed Pending at discharge Category Date Time Status AFB [Mycobacteria, Culture w/Fluor] Routine Lab 01/13/23 11:50 Received AFB [Mycobacteria, Culture w/Fluor] Routine Lab 01/13/23 16:03 Received JAMISON Profile Custom [[facility] [place] JAMISON Profile] QAM Lab 01/13/23 02:24 Received Bacterial Antigen Stat Lab 01/12/23 15:45 Received Blood Culture Stat Lab 01/12/23 12:27 Results Hepatitis C RNA Viral Load Qnt Routine Lab 01/13/23 03:33 Received Sputum Culture and Gram Stain Stat Lab 01/12/23 21:38 Results Radiology Impressions Chest X-Ray 01/12/23 11:28 Impression: Negative chest. Chest CT 01/12/23 16:47 IMPRESSION: 1. Tree-in-bud opacities bilaterally which are most prominent in the lower lobes and right upper lobe with some sparing of the right middle lobe left upper lobe most consistent with tuberculosis versus other inflammatory process. 2. Shotty mediastinal adenopathy which may be reactive. 3. 2.4 x 2.3 x 1.5 cm semi solid opacity in the left paraspinous lung base which could represent rounded atelectasis versus scar tissue. Axial series 4, images 54-55. Laboratory Results WBC 18.5 10^3/uL (4.0-10.0) H 01/14/23 05:45 RBC 4.77 10^6/uL (4.1-5.3) 01/14/23 05:45 Hgb 15.4 g/dL (11.7-16.6) 01/14/23 05:45 Hct 44.9 % (42.0-52.0) 01/14/23 05:45 MCV 94.1 fl (80-94) H 01/14/23 05:45 MCH 32.3 pg (28.0-34.0) 01/14/23 05:45 MCHC 34.3 g/dL (30.0-36.0) 01/14/23 05:45 RDW 12.5 % (12.1-15.1) 01/14/23 05:45 Plt Count 443 10^3/cmm (130-400) H 01/14/23 05:45 MPV 8.5 fL (7.4-10.4) 01/14/23 05:45 Neut % (Auto) 85.5 % 01/14/23 05:45 Lymph % (Auto) 8.4 % 01/14/23 05:45 [place] % (Auto) 4.7 % 01/14/23 05:45 Eos % (Auto) 0.0 % 01/14/23 05:45 Baso % (Auto) 0.3 % 01/14/23 05:45 Neut # (Auto) 15.86 10^3/uL (1.8-7.7) H 01/14/23 05:45 Lymph # (Auto) 1.6 10^3/uL (0.8-4.8) 01/14/23 05:45 [place] # (Auto) 0.9 10^3/uL (0.2-0.9) 01/14/23 05:45 Eos # (Auto) 0.0 10^3/uL (0.0-0.8) 01/14/23 05:45 Baso # (Auto) 0.1 10^3/uL (0.0-0.1) 01/14/23 05:45 Nucleated RBC % (auto) 0 % 01/14/23 05:45 Nucleated RBCs # 0.0 /100WBC 01/14/23 05:45 D-Dimer 0.58 ug/mIFEU (0-0.59) 01/12/23 12:10 Sodium 140 mmol/L (136-145) 01/14/23 05:45 Potassium 4.0 mmol/L (3.5-5.1) 01/14/23 05:45 Chloride 103 mmol/L (98-107) 01/14/23 05:45 Carbon Dioxide 25 mmol/L (22-29) 01/14/23 05:45 Anion Gap 16.0 (5-19) 01/14/23 05:45 BUN 19 mg/dL (6-20) 01/14/23 05:45 Creatinine 0.7 mg/dL (0.7-1.2) 01/14/23 05:45 GFR Calculation 118.4 mL/min (90-130) 01/14/23 05:45 Glucose 128 mg/dL (65-115) H 01/14/23 05:45 Estimat Average Glucose 105 01/13/23 02:24 Hemoglobin A1c 5.3 % (4.0-6.0) 01/13/23 02:24 Calculated Osmolality 294 mOsm/kg (285-295) 01/14/23 05:45 Lactic Acid 1.3 mmol/L (0.5-2.2) 01/12/23 12:10 Calcium 9.1 mg/dL (8.5-10.5) 01/14/23 05:45 Phosphorus 2.8 mg/dL (2.5-4.5) 01/13/23 02:24 Magnesium 2.1 mg/dL (1.7-2.3) 01/13/23 02:24 Iron 19 ug/dL (59-158) L 01/12/23 18:15 TIBC 210 mcg/dl 01/12/23 18:15 % Saturation 9.0 % (20-50) L 01/12/23 18:15 Unsat Iron Binding 191 ug/dL (112-347) 01/12/23 18:15 Total Bilirubin 0.4 mg/dL (0.15-1.2) 01/14/23 05:45 AST 24 U/L (0-40) 01/14/23 05:45 ALT 28 U/L (0-41) 01/14/23 05:45 Alkaline Phosphatase 85 U/L (40-130) 01/14/23 05:45 Troponin T Baseline 12 ng/L (0-15) 01/12/23 12:10 Troponin T 120 Minute 9.02 ng/L (0-15) 01/12/23 14:07 Delta Troponin T -3 ABS# (0-10) L 01/12/23 14:07 Troponin T Hi Sens 6Hr 6.54 ng/L (0-15) 01/12/23 18:15 Troponin T Hi Sens 6Hr Delta -5.46 ng/L (0-12) L 01/12/23 18:15 C-Reactive Protein 159.9 mg/L (0.0-4.9) H 01/12/23 12:10 NT-Pro-B Natriuret Pep 145 pg/mL (0-125) H 01/12/23 12:10 Total Protein 7.1 g/dL (6.6-8.7) 01/14/23 05:45 Albumin 3.4 g/dL (3.5-5.2) L 01/14/23 05:45 Globulin 3.7 g/dL (1.3-4.6) 01/14/23 05:45 Triglycerides 64 mg/dL (0-150) 01/13/23 02:24 Cholesterol 97 mg/dL (0-200) 01/13/23 02:24 LDL Cholesterol, Calc 49 mg/dL (50-129) L 01/13/23 02:24 Total VLDL Cholesterol 13 mg/dL (0-30) 01/13/23 02:24 HDL Cholesterol 35 mg/dL (60-100) L 01/13/23 02:24 Cholesterol/HDL Ratio 2.77 mg/dL (1.0-5.00) 01/13/23 02:24 Vitamin B12 320 pg/mL (232-1245) 01/12/23 12:10 Folate 8.5 ng/mL (4.5-32.2) 01/12/23 12:10 Procalcitonin 0.25 ng/mL (0-0.5) 01/12/23 12:10 Procalcitonin 0.27 ng/mL (0-0.5) 01/12/23 12:10 TSH 1.47 uIU/mL (0.27-4.20) 01/12/23 12:10 Urine Color Yellow (Yellow) 01/12/23 15:45 Urine Appearance Clear (CLEAR) 01/12/23 15:45 Urine pH 5 (5-7) 01/12/23 15:45 Ur Specific [place] 1.010 (1.005-1.030) 01/12/23 15:45 Urine Protein Trace (Negative) 01/12/23 15:45 Urine Glucose (UA) Norm (Normal) 01/12/23 15:45 Urine Ketones 2+ (Negative) H 01/12/23 15:45 Urine Blood Neg (Negative) 01/12/23 15:45 Urine Nitrate Negative (Negative) 01/12/23 15:45 Urine Bilirubin Neg (Negative) 01/12/23 15:45 Urine Urobilinogen Neg mg/dL (Negative) 01/12/23 15:45 Ur Leukocyte Esterase Negative (Negative) 01/12/23 15:45 Urine RBC None /hpf (0-2) 01/12/23 15:45 Urine WBC None /hpf (0-5) 01/12/23 15:45 Ur Squamous Epith Cells Rare /hpf (0-5) 01/12/23 15:45 Amorphous Sediment Trace /hpf 01/12/23 15:45 Urine Bacteria None /hpf (NONE) 01/12/23 15:45 Urine Opiates Screen Positive ng/mL (Negative) H 01/12/23 15:45 Ur Barbiturates Screen Negative ng/mL (Negative) 01/12/23 15:45 Ur Phencyclidine Scrn Negative ng/mL (Negative) 01/12/23 15:45 Ur Amphetamines Screen Negative ng/mL (Negative) 01/12/23 15:45 U Benzodiazepines Scrn Negative ng/mL (Negative) 01/12/23 15:45 Urine Cocaine Screen Negative ng/mL (Negative) 01/12/23 15:45 U Marijuana (THC) Screen Positive ng/mL (Negative) H 01/12/23 15:45 Coronavirus 229E (PCR) Not detected (NOT DETECT) 01/12/23 16:30 Hepatitis A IgM Ab Non-reactive (Nonreactive) 01/13/23 02:24 Hep Bs Antigen Non-reactive (Nonreactive) 01/13/23 02:24 Hep Bs Antibody 3.5 (11.5-1000) L 01/13/23 02:24 Hep B Core Total Ab Non-reactive (Nonreactive) 01/13/23 02:24 Hepatitis C Antibody Reactive (Nonreactive) H 01/13/23 02:24 HIV 1&2 Ab & HIV 1 Ag Non-reactive (Non-Reactiv) 01/13/23 02:24 HIV 1&2 Antibody Non-reactive (Non-Reactiv) 01/13/23 02:24 Influenza Type A Ag negative (Negative) 01/12/23 17:30 Influenza Type B Ag negative (Negative) 01/12/23 17:30 SARS-CoV-2 (PCR) Not detected (NOT DETECT) 01/12/23 16:30 Vitals Last Vital Signs Temp 97.7 F 01/14/23 08:00 Pulse 87 01/14/23 09:52 Resp 18 01/14/23 09:41 BP 140/97 01/14/23 08:00 Pulse Ox 94 01/14/23 09:41 O2 Del Method 01/14/23 09:41 O2 Flow Rate 1 01/14/23 09:41 FiO2 1 01/13/23 13:57 Discharge Plan Discharge Patient Disposition: Home Condition: Stable Prescriptions: New amlodipine 10 mg Tablet 10 mg PO DAILY Qty: 30 0RF docusate sodium 100 mg Capsule 100 mg PO BID PRN (Reason: constipation) Qty: 14 0RF ferrous gluconate 324 mg (37.5 mg iron) Tablet 324 mg PO BIDWM Qty: 60 0RF metoprolol tartrate 25 mg Tablet 25 mg PO BID@0900,2100 Qty: 60 0RF Advair Diskus 250-50 mcg/dose blister with device 1 inh inhalation Q12H Qty: 60 0RF Spiriva with HandiHaler 18 mcg capsule, w/inhalation device 1 cap inhalation DAILY Qty: 30 0RF Rx Instructions: puncture 1 cap using device; one dose = 2 inhalations prednisone 10 mg tablets,dose pack See Rx Instructions .ROUTE .COMPLEX Qty: 21 0RF Rx Instructions: orally per package directions levofloxacin 750 mg tablet 750 mg PO Q24H 5 Days Qty: 5 0RF Continued Eliquis 5 mg tablet 5 mg PO BID atorvastatin 40 mg tablet 40 mg PO DAILY@2000 acetaminophen [Tylenol Extra Strength] 500 mg tablet 1,000 mg PO Q6H PRN (Reason: Pain) albuterol sulfate 90 mcg/actuation HFA aerosol inhaler 2 puff inhalation QID PRN (Reason: shortness of breath or wheezing) Qty: 6.7 0RF pantoprazole 20 mg tablet,delayed release (DR/EC) 20 mg PO BID benzonatate 100 mg capsule 100 - 200 mg PO TID PRN (Reason: Cough) Flonase Allergy Relief 50 mcg/actuation spray,suspension 2 spray INTRANASAL DAILY cyclobenzaprine 5 mg tablet 5 mg PO DAILY PRN (Reason: Muscle Spasm) Wellbutrin XL 150 mg Tablet Extended Release 24 Hr 150 mg PO BEDTIME betamethasone dipropionate 0.05 % ointment 1 applic topical BID PRN (Reason: unknown) Rx Instructions: Apply to affected area no more than 2 weeks per month. not for face or skin folds No Action azithromycin 250 mg tablet See Rx Instructions PO .COMPLEX Qty: 6 0RF Rx Instructions: For 250 mg dose pack: take 500 mg today (day 1), then 250 mg for 4 days (days 2-5) PO prednisone 20 mg tablet 40 mg PO DAILY Rx Instructions: for 3 days (rx filled 01/09/23) Discharge Orders: Discharge Order (Routine); Ordered 01/14/23 Ordered By: Marcial Bernal Referrals: Carmella Montelongo, [Primary Care Provider] - 1 week (Please call Monday to schedule your follow up appointment with Dr. Montelongo.) Discharge Diet: Regular Discharge Activity: Resume usual activity and Increase activity as tolerated Patient Instructions: Metoprolol (By mouth), Prednisone (By mouth) (predniSONE Intensol, Prednicot, Deltasone, Adilene), Amlodipine (By mouth), Levofloxacin (By mouth), Fluticasone/Salmeterol (By breathing) (Advair Diskus 100/50, Advair..., Tiotropium (By breathing) (Spiriva, Spiriva Respimat), COPD (Chronic Obstructive Pulmonary Disease) (DC), Chronic Hypertension (DC), Opioid Safety Activity Restrictions/Additional Instructions: Please follow-up with a primary care provider within next 1 week. Please continue taking relation treatment as discussed in detail. Take steroid taper as prescribed. Please follow-up with a primary care provider for further discussion regarding AFB for sputum culture results. Discharge Attestations Time Spent in Discharge Care*: greater than 30 min Specific Discharge Activities: educating patient, educating and/or supporting family/caregiver, discussing with pcp/other providers, discussing with [employer]/social workers/dc planners, documenting/other paperwork and evaluating patient/reviewing data Status at Discharge: Cognitive status at discharge: cognitively intact , Behavioral status at discharge: cooperative , Functional status at discharge: independent ambulation , Overall status at discharge: patient is back to baseline Quality Metrics Clinical Quality Measures [ No reported AMI, CVA or VTE this stay] Coding Level of Care Code 25031 Total time (in minutes) for Discharge: 60 Diagnoses Hypoxia R09.02 Acute exacerbation of chronic obstructive airways disease J44.1 Hypertension I10 Positive PPD, treated R76.11
[2023-01-14 23:24] LABS: HEP C RNA Viral Load Quant 6.89 Log IU/mL (NOT DETECTED); HEP C RNA Viral Load Quant 7690000 IU/mL (NOT DETECTED)
[2023-01-16 10:16] LABS: Anti-Double Strand DNA AB <1 IU/mL; Jo-1 Antibody <1.0 NEG AI (<1.0 NEG); SM/RNP Antibodies <1.0 NEG AI (<1.0 NEG); SS-B/LA IGG <1.0 NEG AI (<1.0 NEG); Scleroderma Ab(Scl-70) Ab <1.0 NEG AI (<1.0 NEG); Ss-A/Ro Igg <1.0 NEG AI (<1.0 NEG)
== END 2023-01-14 15:30 | disposition home or self-care (01) | DRG 206 ==
LOC: ER 15:22 → MEDSURG 17:06
PROVIDERS: Admitting Provider Student in an Organized Health Care Education/Training Program; Emergency Provider Emergency Medicine; PCP Family Medicine; Visit Provider Student in an Organized Health Care Education/Training Program
DX: J68.0 Bronchitis and pneumonitis due to chemicals, gases, fumes and vapors (principal); J20.9 Acute bronchitis, unspecified; Z86.73 Personal history of transient ischemic attack (TIA), and cerebral infarction without residual deficits; U07.0 Vaping-related disorder; Z79.51 Long term (current) use of inhaled steroids; R76.11 Nonspecific reaction to tuberculin skin test without active tuberculosis; F41.8 Other specified anxiety disorders; K21.9 Gastro-esophageal reflux disease without esophagitis; Z85.828 Personal history of other malignant neoplasm of skin; Z87.442 Personal history of urinary calculi; I10 Essential (primary) hypertension; B19.20 Unspecified viral hepatitis C without hepatic coma; F12.90 Cannabis use, unspecified, uncomplicated; F11.90 Opioid use, unspecified, uncomplicated
CPT/HCPCS: 36415; 71045; 71250; 80053; 80061; 80306; 81001; 82607; 82746; 83036; 83540; 83550; 83605; 83735; 83880; 84100; 84145; 84443; 84484; 85025; 85378; 86140; 86225; 86235; 86403; 86705; 86706; 86709; 86803; 87015; 87040; 87070; 87116; 87205; 87206; 87340; 87449; 87522; 87635; 87641; 87801; 87804; 87806; 90471; 90732; 93005; 94640; 94760; 96361; 96374; 96375; 99285; G0378; J2270; J2920; J2930; J7030; J7613; J7614; J7626; J7644; Q0144

== ENCOUNTER 2023-02-01 09:51 | Outpatient (CLI) | payer MEDICARE, MEDICAID, SELFPAY ==
[2023-02-07 14:36] LABS: Hepatitis C Genotype RNA 1a
== END 2023-02-01 09:52 | disposition home or self-care (01) ==
LOC: LAB 09:55
PROVIDERS: PCP Family Medicine; Visit Provider Student in an Organized Health Care Education/Training Program
DX: B19.20 Unspecified viral hepatitis C without hepatic coma (principal)
CPT/HCPCS: 36415; 87902

== ENCOUNTER 2023-02-06 15:52 | Outpatient (CLI) | payer MEDICARE, MEDICAID, SELFPAY ==
--- NOTE | 2023-02-06 16:15 | US_ITS ---
WS: [email or web address] RIGHT UPPER QUADRANT ULTRASOUND HISTORY: B19.20 - Unspecified viral hepatitis C without hepatic coma COMPARISON: None available. Liver: 14.9 cm in length. Normal size liver and echogenicity. No bile duct dilatation or mass. Portal Vein: Normal hepatopetal flow with monophasic waveform. Gallbladder: Normally distended gallbladder with no stones or wall thickening. CBD: 0.3 cm Pancreas: Limited visualization of the pancreas. No abnormality identified. Right kidney: 10.9 cm in length. Normal size and echogenicity. No hydronephrosis or mass. Aorta and IVC: Unremarkable abdominal aorta and IVC. No ascites. US/US liver [id number] IMPRESSION: 1. Normal gallbladder. 2. Negative liver. No mass identified.
== END 2023-02-06 15:53 | disposition home or self-care (01) ==
LOC: RAD 15:55
PROVIDERS: PCP Family Medicine; Visit Provider Student in an Organized Health Care Education/Training Program
DX: B19.20 Unspecified viral hepatitis C without hepatic coma (principal)
CPT/HCPCS: 76705

== ENCOUNTER → 2023-02-16 15:01 | Outpatient (BNVA) | payer MEDICARE, MEDICAID, SELFPAY | PROVIDERS: PCP Family Medicine; Visit Provider Student in an Organized Health Care Education/Training Program | DX: B19.20 Unspecified viral hepatitis C without hepatic coma (principal) | CPT/HCPCS: 99205 ==

== ENCOUNTER → 2023-03-10 10:16 | Outpatient (BNVA) | payer MEDICARE, MEDICAID, SELFPAY | PROVIDERS: PCP Family Medicine; Visit Provider Nurse Practitioner | DX: S99.921A Unspecified injury of right foot, initial encounter (principal); X58.XXXA Exposure to other specified factors, initial encounter | CPT/HCPCS: 73630 ==

== ENCOUNTER → 2023-03-27 09:26 | Outpatient (BNVA) | payer MEDICARE, MEDICAID, SELFPAY | PROVIDERS: PCP Family Medicine; Visit Provider Nurse Practitioner Family | DX: L81.4 Other melanin hyperpigmentation (principal); Z87.891 Personal history of nicotine dependence; Z85.828 Personal history of other malignant neoplasm of skin; D22.5 Melanocytic nevi of trunk; Z71.89 Other specified counseling; L70.8 Other acne; L57.8 Other skin changes due to chronic exposure to nonionizing radiation | CPT/HCPCS: 99213 ==

== ENCOUNTER 2023-07-24 15:40 | Outpatient (CLI) | payer MEDICARE, MEDICAID, SELFPAY ==
[2023-07-26 22:14] LABS: HEP C RNA Viral Load Quant <1.18 NOT DETECTED Log IU/mL (NOT DETECTED); HEP C RNA Viral Load Quant <15 NOT DETECTED IU/mL (NOT DETECTED)
== END 2023-07-24 15:41 | disposition home or self-care (01) ==
LOC: LAB 15:44
PROVIDERS: PCP Family Medicine; Visit Provider Student in an Organized Health Care Education/Training Program
DX: B19.20 Unspecified viral hepatitis C without hepatic coma (principal)
CPT/HCPCS: 87522

== ENCOUNTER → 2023-09-27 08:11 | Outpatient (BNVA) | payer MEDICARE, MEDICAID, SELFPAY | PROVIDERS: PCP Family Medicine; Visit Provider Nurse Practitioner Family | DX: L81.4 Other melanin hyperpigmentation (principal); L57.8 Other skin changes due to chronic exposure to nonionizing radiation; L30.0 Nummular dermatitis; D23.71 Other benign neoplasm of skin of right lower limb, including hip; L57.0 Actinic keratosis; D22.5 Melanocytic nevi of trunk; Z08 Encounter for follow-up examination after completed treatment for malignant neoplasm; Z85.828 Personal history of other malignant neoplasm of skin | CPT/HCPCS: 17000; 99214 ==

== ENCOUNTER → 2023-11-02 07:28 | Outpatient (BNVA) | payer MEDICARE, MEDICAID, SELFPAY | PROVIDERS: PCP Family Medicine; Visit Provider Family Medicine Adult Medicine | DX: J02.9 Acute pharyngitis, unspecified (principal); R76.11 Nonspecific reaction to tuberculin skin test without active tuberculosis | CPT/HCPCS: 87880 ==

== ENCOUNTER 2023-12-06 09:39 | Outpatient (CLI) | payer MEDICARE, MEDICAID, SELFPAY ==
--- NOTE | 2023-12-06 09:54 | XRR_ITS ---
PROCEDURE INFORMATION: Exam: XR Cervical Spine Exam date and time: 12/06/2023 9:58 AM Age: 53 years old Clinical indication: Pain and injury or trauma; Fall; Blunt trauma; Neck pain; Injury date: 2 weeks ago TECHNIQUE: Imaging protocol: Radiologic exam of the cervical spine. Views: 4 or 5 views. COMPARISON: CT angio headneck* [id number] 12/20/2017 10:33 AM FINDINGS: Bones/joints: With flexion and extension there is no evidence of instability. No fracture. Soft tissues: Unremarkable. XR/XR cervical spine 4-5V [id number] IMPRESSION: I see no acute abnormality.
--- NOTE | 2023-12-06 09:54 | XRR_ITS ---
PROCEDURE INFORMATION: Exam: XR Left Ribs Exam date and time: 12/06/2023 9:58 AM Age: 53 years old Clinical indication: Pain and injury or trauma; Fall; Rib area, left side; Blunt trauma; Chest wall pain; Injury date: 2 weeks ago; Additional info: Left rib pain TECHNIQUE: Imaging protocol: Radiologic exam of the left ribs. Views: 2 views. COMPARISON: CT chest con [id number] 01/12/2023 4:55 PM FINDINGS: Bones/joints: Normal. Soft tissues: Normal. XR/XR ribs LT 2V* [id number] IMPRESSION: No acute findings.
== END 2023-12-06 09:40 | disposition home or self-care (01) ==
LOC: RAD 09:48
PROVIDERS: PCP Family Medicine; Visit Provider Family Medicine
DX: M54.2 Cervicalgia (principal); R07.81 Pleurodynia; W19.XXXA Unspecified fall, initial encounter
CPT/HCPCS: 71100; 72050

== ENCOUNTER 2024-01-18 09:48 | Outpatient (CLI) | payer MEDICARE, MEDICAID, SELFPAY ==
--- NOTE | 2024-01-18 09:52 | US_ITS ---
WS: [email or web address] RIGHT UPPER QUADRANT ULTRASOUND HISTORY: RUQ PAIN COMPARISON: 02/06/2023 Liver: 12.6 cm in length. Normal size liver. Mild hepatic steatosis. Liver is poorly visualized due t o body habitus. No mass identified. Portal Vein: Normal hepatopetal flow with monophasic waveform. Gallbladder: Normally distended gallbladder with no stones or wall thickening. CBD: 0.5 cm Pancreas: Completely obscured. Right kidney: 11.0 cm in length. Normal size and echogenicity. No hydronephrosis or mass. Aorta and IVC: Unremarkable abdominal aorta and IVC. No ascites. IMPRESSION: 1. Normal gallbladder. 2. Mild hepatic steatosis. New since 02/06/2023.
== END 2024-01-18 09:49 | disposition home or self-care (01) ==
LOC: RAD 09:48
PROVIDERS: PCP Family Medicine; Visit Provider Family Medicine
DX: R10.11 Right upper quadrant pain (principal)
CPT/HCPCS: 76705

== ENCOUNTER 2024-03-26 09:54 | Outpatient (CLI) | payer MEDICARE, SELFPAY ==
--- NOTE | 2024-03-26 10:04 | CT_ITS ---
WS: [id number] LDCT LUNG CANCER SCREENING HISTORY: NICOTINE DEPENDENCE,CIGARETTES TECHNIQUE: Axial imaging performed from the apices to 1 cm below the costophrenic angles. Coronal and sagittal reformats are submitted with axial MIP series. All CT scans at [facility] use at least one of these dose optimization techniques: automated exposure control; mA and/or kV adjustment per patient size (includes targeted exams where dose is matched to clinical indication); or iterativ e reconstruction. DLP: 90.69 mGy.cm DIvol: Mean CTDIvol: 2.00 (mGy) COMPARISON: 01/12/2023 Diagnostic quality: Satisfactory Lungs: Long-term stability of subpleural 3 mm nodule LEFT lower lobe. No suspicious masses or nodules . No pneumonia. Thin linear areas of atelectasis in the RIGHT upper and RIGHT lower lobes. Previously described tree-in-bud airspace disease has resolved since 01/12/2023. Heart: Normal size heart with no pericardial effusion.. Other findings: No adenopathy. Normal size heart. Small hiatal hernia. No adrenal mass. CT/CT lung screening [id number] IMPRESSION: LUNG-RADS: 2-Benign Appearance or Behavior FOLLOW UP: 12 Month: Continue annual screening with LDCT OTHER FINDINGS (S MODIFIER): None.
== END 2024-03-26 09:55 | disposition home or self-care (01) ==
LOC: RAD 09:54
PROVIDERS: PCP Family Medicine; Visit Provider Family Medicine
DX: F17.210 Nicotine dependence, cigarettes, uncomplicated (principal); Z12.2 Encounter for screening for malignant neoplasm of respiratory organs
CPT/HCPCS: 71271

== ENCOUNTER → 2024-09-27 08:00 | Outpatient (BNVA) | payer MEDICARE, MEDICAID, SELFPAY | PROVIDERS: PCP Family Medicine; Visit Provider Nurse Practitioner Family | DX: L21.8 Other seborrheic dermatitis (principal); L81.4 Other melanin hyperpigmentation; L57.8 Other skin changes due to chronic exposure to nonionizing radiation; L30.0 Nummular dermatitis; D23.71 Other benign neoplasm of skin of right lower limb, including hip; Z85.828 Personal history of other malignant neoplasm of skin | CPT/HCPCS: 99214 ==

== ENCOUNTER → 2024-12-16 15:30 | Outpatient (BNVA) | payer MEDICARE, MEDICAID, SELFPAY | PROVIDERS: PCP Family Medicine; Visit Provider Nurse Practitioner Family | DX: L57.8 Other skin changes due to chronic exposure to nonionizing radiation (principal); L03.211 Cellulitis of face; L72.0 Epidermal cyst | CPT/HCPCS: 10060; 99214 ==

== ENCOUNTER → 2024-12-23 13:15 | Outpatient (BNVA) | payer MEDICARE, MEDICAID, SELFPAY | PROVIDERS: PCP Family Medicine; Visit Provider Nurse Practitioner Family | DX: L72.0 Epidermal cyst (principal); L57.0 Actinic keratosis | CPT/HCPCS: 17000; 99214 ==

== ENCOUNTER → 2025-01-07 09:30 | Outpatient (BNVA) | payer MEDICARE, MEDICAID, SELFPAY | PROVIDERS: PCP Family Medicine; Visit Provider Nurse Practitioner Family | DX: L72.0 Epidermal cyst (principal); L57.8 Other skin changes due to chronic exposure to nonionizing radiation | CPT/HCPCS: 99214 ==

== ENCOUNTER → 2025-01-31 08:20 | Outpatient (BNVA) | payer MEDICARE, MEDICAID, SELFPAY | PROVIDERS: PCP Family Medicine; Visit Provider Nurse Practitioner Family | DX: L70.0 Acne vulgaris (principal); D48.5 Neoplasm of uncertain behavior of skin | CPT/HCPCS: 11104; 99213 ==

== ENCOUNTER → 2025-02-07 09:37 | Outpatient (BNVA) | payer MEDICARE, MEDICAID, SELFPAY | PROVIDERS: PCP Family Medicine; Visit Provider Nurse Practitioner Family | DX: L73.9 Follicular disorder, unspecified (principal) | CPT/HCPCS: 99213 ==

== ENCOUNTER → 2025-05-07 10:21 | Outpatient (BNVA) | payer MEDICARE, MEDICAID, SELFPAY | PROVIDERS: PCP Family Medicine; Visit Provider Nurse Practitioner Family | DX: L30.0 Nummular dermatitis (principal); L57.8 Other skin changes due to chronic exposure to nonionizing radiation; L57.0 Actinic keratosis | CPT/HCPCS: 17000; 99214 ==

== ENCOUNTER 2025-08-21 07:29 | Outpatient (CLI) | payer OTHER, MEDICAID, SELFPAY ==
--- NOTE | 2025-08-21 07:34 | CT_ITS ---
WS: [email or web address] LDCT LUNG CANCER SCREENING HISTORY: NICOTINE DEPENDENCE TECHNIQUE: Axial imaging performed from the apices to 1 cm below the costophrenic angles. Coronal and sagittal reformats are submitted with axial MIP series. All CT scans at [facility] use at least one of these dose optimization techniques: automated exposure control; mA and/or kV adjustment per patient size (includes targeted exams where dose is matched to clinical indication); or iterative reconstruction. DLP: 98.41 mGy.cm DIvol: Mean CTDIvol: 2.00 (mGy) COMPARISON: 03/26/2024 Diagnostic quality: Satisfactory Lungs: Stable subpleural 3 mm nodule LEFT lower lobe. No new mass or nodule. No endobronchial lesions. Linear bandlike atelectasis at the lung bases. Heart: Normal size heart with no pericardial effusion.. Other findings: Normal aorta and pulmonary artery size. No adenopathy. Small hiatal hernia. No adrenal mass. CT/CT lung screening [id number] IMPRESSION: LUNG-RADS: 2-Benign Appearance or Behavior FOLLOW UP: 12 Month: Continue annual screening with LDCT OTHER FINDINGS (S MODIFIER): None.
== END 2025-08-21 07:30 | disposition home or self-care (01) ==
LOC: RAD 07:32
PROVIDERS: PCP Family Medicine; Visit Provider Family Medicine
DX: Z12.2 Encounter for screening for malignant neoplasm of respiratory organs (principal); Z87.891 Personal history of nicotine dependence; R91.1 Solitary pulmonary nodule; J98.11 Atelectasis; K44.9 Diaphragmatic hernia without obstruction or gangrene
CPT/HCPCS: 71271

== ENCOUNTER → 2025-09-30 08:20 | Outpatient (BNVA) | payer OTHER, MEDICAID, SELFPAY | PROVIDERS: PCP Family Medicine; Visit Provider Nurse Practitioner Family | DX: L30.0 Nummular dermatitis (principal); L57.8 Other skin changes due to chronic exposure to nonionizing radiation; L70.0 Acne vulgaris; Z08 Encounter for follow-up examination after completed treatment for malignant neoplasm; Z85.828 Personal history of other malignant neoplasm of skin; L57.0 Actinic keratosis | CPT/HCPCS: 17000; 99214 ==